=== PATIENT | female | born 1975 | race Caucasian/White ===

== ENCOUNTER 2020-01-02 14:32 | Emergency (ER) | payer BC ==
--- NOTE | 2020-01-02 14:33 | ERPHSYRPT ---
- History of Present Illness Time Seen by Provider: 01/02/20 14:33 Historian: patient Exam Limitations: no limitations Physician History: 44-year-old morbidly obese female whose had 5 days of worsening epigastric and right upper quadrant abdominal pain. On 12/16/2019 the patient had a negative ultrasound of her gallbladder. He was scheduled on 12/23/2019 to undergo a HIDA scan of the gallbladder. However she did not make that appointment. The next week it was to be scheduled she did not feel well so that has not been performed. Patient is an insulin-dependent diabetic with hypertension and gastroesophageal reflux disease. She also has elevated cholesterol. She states she has not had any jaundice or acholic stools. She denies dark urine. She does feel bloated belching and gassy. She could not tolerate the pain today and therefore she is here for evaluation. Patient denies chest pain and she denies shortness of air. States that she has nausea. She has not vomited in a couple of days. She also had some diarrhea as well Timing/Duration: day(s) (5) Quality: cramping, fullness, pressure Abdominal Pain Onset Location: RUQ, epigastric Pain Radiation: no radiation Severity of Pain-Max: moderate Severity of Pain-Current: moderate Modifying Factors: Improves With: nothing Associated Symptoms: diarrhea, loss of appetite, nausea, vomiting, No chest pain , No fever/chills, No heartburn, No shortness of breath Previous symptoms: same symptoms as today, recently seen, recently treated Allergies/Adverse Reactions: morphine Adverse Reaction (Mild, Verified 01/02/20 14:58) Vomiting Home Medications: Duloxetine HCl [Cymbalta] 60 mg PO DAILY 03/06/13 [History] Esomeprazole Magnesium [Nexium] 40 mg PO DAILY 03/06/13 [History] Gemfibrozil 600 mg [Lopid 600 mg] 600 mg PO BID 03/06/13 [History] Glimepiride 4 mg [Amaryl 4 mg] 4 mg PO DAILY 03/06/13 [History] Lisinopril 10 mg [Zestril 10 MG] 10 mg PO DAILY 03/06/13 [History] Metformin HCl 1000 mg [Glucophage 1000 MG] 1,000 mg PO BID 03/06/13 [History] Pravastatin Sodium [Pravachol] 40 mg PO DAILY 03/06/13 [History] Insulin Glargine,Hum.rec.anlog [Basaglar Kwikpen U-100] 20 unit SQ DAILY [History] Magnesium Oxide 400 mg PO DAILY 01/02/20 [History] Hx Influenza Vaccination/Date Given: No Hx Pneumococcal Vaccination/Date Given: No Travel Risk - International Travel Have you traveled outside of the country in past 3 weeks: No Have you or anyone close to you been diagnosed with or: No Do your reside in a community with a known COVID-19 case?: Yes If Yes where:: [facility] - Coronavirus Screening Has patient experienced Coronavirus symptoms: No - Review of Systems Constitutional: No Symptoms Eyes: No Symptoms Ears, Nose, & Throat: No Symptoms Respiratory: No Symptoms Cardiac: No Symptoms Abdominal/Gastrointestinal: Abdominal Pain (Epigastric and right upper quadrant) , Nausea, Vomiting, Diarrhea Genitourinary Symptoms: No Symptoms Musculoskeletal: No Symptoms Skin: No Symptoms Neurological: No Symptoms Psychological: No Symptoms Endocrine: No Symptoms Hematologic/Lymphatic: No Symptoms Immunological/Allergic: No Symptoms All Other Systems: Reviewed and Negative - Past Medical History Pertinent Past Medical History: Yes Neurological History: No Pertinent History ENT History: No Pertinent History Cardiac History: High Cholesterol Respiratory History: No Pertinent History Endocrine Medical History: Diabetes Type II Musculoskeletal History: Osteoarthritis GI Medical History: GERD History: No Pertinent History Psycho-Social History: Depression Female Reproductive Disorders: Abnormal Uterine Bleeding, Other Other Medical History: HAS SOME O.A. IN BACK AND ALSO IN KNEE. WALKS 3-6 MILES A DAY - Past Surgical History Past Surgical History: Yes Neuro Surgical History: No Pertinent History, Other Cardiac: No Pertinent History Gastrointestinal: Hernia Repair Musculoskeletal: Other Female Surgical History: Other Other Surgical History: Back surgery 12/2009 - Social History Smoking Status: Never smoker Exposure to second hand smoke: No Drug Use: none - Nursing Vital Signs Nursing Vital Signs: Initial Vital Signs Temperature 98.3 F 01/02/20 14:42 Pulse Rate 81 01/02/20 14:42 Blood Pressure 133/68 01/02/20 14:42 O2 Sat by Pulse Oximetry 98 01/02/20 14:42 Pain Scale Pain Intensity 6 - Physical Exam General Appearance: mild distress, alert, anxiety, obese Eye Exam: PERRL/EOMI, eyes nml inspection, No scleral icterus Ears, Nose, Throat Exam: normal ENT inspection, moist mucous membranes Neck Exam: normal inspection, non-tender, supple, full range of motion Respiratory Exam: normal breath sounds, lungs clear, airway intact, No chest tenderness, No respiratory distress Cardiovascular Exam: regular rate/rhythm, normal heart sounds, normal peripheral pulses Gastrointestinal/Abdomen Exam: soft, normal bowel sounds, tenderness (Gastric and right upper quadrant), guarding, No distention, No mass, No rebound Pelvic Exam: not done Rectal Exam: not done Back Exam: normal inspection, normal range of motion, No CVA tenderness, No vertebral tenderness Extremity Exam: normal inspection, normal range of motion, pelvis stable Neurologic Exam: alert, 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, cooperative, sports editor II-XII nml as tested, normal mood/affect, nml cerebellar function, nml station & gait Skin Exam: normal color, warm, dry, No jaundice Lymphatic Exam: adenopathy SpO2 Interpretation: normal O2 Delivery: Room Air - Course Nursing assessment & vital signs reviewed: Yes Ordered Tests: Active Orders 24 hr Category Date Time Status IV Insertion STAT Care 01/02/20 15:17 Active ABDOMEN AND PELVIS W/0 CONTRAS [CT] Stat Exams 01/02/20 15:18 Completed AMYLASE Stat Lab 01/02/20 15:17 Completed CBC W DIFF Stat Lab 01/02/20 15:17 Completed CMP Stat Lab 01/02/20 15:17 Completed LIPASE Stat Lab 01/02/20 15:17 Completed Lactic Acid Stat Lab 01/02/20 15:26 Completed UA W/RFX UR CULTURE Stat Lab 01/02/20 15:34 Completed Medication Summary Discontinued Medications Generic Name Dose Route Start Last Admin Trade Name Freq PRN Reason Stop Dose Admin Hydromorphone HCl 1 mg 01/02/20 15:17 01/02/20 15:27 Hydromorphone 1 Mg/Ml Ampule IV 01/02/20 15:18 1 mg STAT ONE Administration Hydromorphone HCl Confirm 01/02/20 15:25 Hydromorphone 1 Mg/Ml Ampule Administered 01/02/20 15:26 Dose 1 mg .ROUTE .STK-MED ONE Sodium Chloride 1,000 mls @ 999 mls/hr 01/02/20 15:17 01/02/20 15:26 Sodium Chloride 0.9% 1000 Ml IV 01/02/20 16:17 999 mls/hr .Q1H1M STA Administration Sodium Chloride Confirm 01/02/20 15:26 Sodium Chloride 0.9% 1000 Ml Administered 01/02/20 15:27 Dose 1,000 mls @ ud .ROUTE .STK-MED ONE Ondansetron HCl 4 mg 01/02/20 15:17 01/02/20 15:27 Zofran 4 Mg/2 Ml Vial IV 01/02/20 15:18 4 mg STAT ONE Administration Ondansetron HCl Confirm 01/02/20 15:25 Zofran 4 Mg/2 Ml Vial Administered 01/02/20 15:26 Dose 4 mg .ROUTE .STK-MED ONE Lab/Rad Data: Laboratory Result Diagrams 01/02/20 15:17 01/02/20 15:17 Laboratory Results 01/02/20 01/02/20 01/02/20 Range/Units 15:34 15:26 15:17 WBC (4.0-10.5) K/mm3 RBC (4.1-5.4) M/mm3 Hgb (12.0-16.0) gm/dl Hct (35-47) % MCV (78-100) fl MCH (26-32) pg MCHC (32-36) g/dl RDW (11.5-14.0) % Plt Count (150-450) K/mm3 MPV (7.5-11.0) fl Gran % (36.0-66.0) % Eos # (Auto) (0-0.5) Absolute Lymphs (auto) (1.0-4.6) Absolute Monos (auto) (0.0-1.3) Lymphocytes % (24.0-44.0) % Monocytes % (0.0-12.0) % Eosinophils % (0.00-5.0) % Basophils % (0.0-0.4) % Absolute Granulocytes (1.4-6.9) Basophils # (0-0.4) Sodium 139 (137-145) mmol/L Potassium 3.9 (3.5-5.1) mmol/L Chloride 106 (98-107) mmol/L Carbon Dioxide 23 (22-30) mmol/L Anion Gap 14.4 (5-15) MEQ/L BUN 11 (7-17) mg/dL Creatinine 0.42 L (0.52-1.04) mg/dL Estimated GFR > 60.0 ML/MIN Glucose 206 H (74-106) mg/dL Lactic Acid 2.3 H (0.4-2.0) Calcium 8.2 L (8.4-10.2) mg/dL Total Bilirubin 0.30 (0.2-1.3) mg/dL AST 20 (14-36) U/L ALT 25 (0-35) U/L Alkaline Phosphatase 71 (38-126) U/L Serum Total Protein 6.7 (6.3-8.2) g/dL Albumin 3.6 (3.5-5.0) g/dL Amylase 58 (30-110) U/L Lipase 218 (23-300) U/L Urine Color YELLOW (YELLOW) Urine Appearance CLEAR (CLEAR) Urine pH 6.0 (5-6) Ur Specific [place] 1.020 (1.005-1.025) Urine Protein NEGATIVE (Negative) Urine Ketones NEGATIVE (NEGATIVE) Urine Blood NEGATIVE (0-5) Suresh/ul Urine Nitrite NEGATIVE (NEGATIVE) Urine Bilirubin NEGATIVE (NEGATIVE) Urine Urobilinogen 2 (0-1) mg/dL Ur Leukocyte Esterase NEGATIVE (NEGATIVE) Urine WBC (Auto) NONE (0-5) /HPF Urine RBC (Auto) NONE (0-2) /HPF U Epithel Cells (Auto) RARE (FEW) /HPF Urine Bacteria (Auto) NONE (NEGATIVE) /HPF Urine Mucus (Auto) SLIGHT (NEGATIVE) /HPF Urine Culture Reflexed NO (NO) Urine Glucose NEGATIVE (NEGATIVE) mg/dL 01/02/20 Range/Units 15:17 WBC 5.9 (4.0-10.5) K/mm3 RBC 4.07 L (4.1-5.4) M/mm3 Hgb 12.0 (12.0-16.0) gm/dl Hct 37.0 (35-47) % MCV 90.9 (78-100) fl MCH 29.5 (26-32) pg MCHC 32.4 (32-36) g/dl RDW 12.8 (11.5-14.0) % Plt Count 207 (150-450) K/mm3 MPV 11.6 H (7.5-11.0) fl Gran % 62.8 (36.0-66.0) % Eos # (Auto) 0.23 (0-0.5) Absolute Lymphs (auto) 1.50 (1.0-4.6) Absolute Monos (auto) 0.44 (0.0-1.3) Lymphocytes % 25.6 (24.0-44.0) % Monocytes % 7.5 (0.0-12.0) % Eosinophils % 3.9 (0.00-5.0) % Basophils % 0.2 (0.0-0.4) % Absolute Granulocytes 3.68 (1.4-6.9) Basophils # 0.01 (0-0.4) Sodium (137-145) mmol/L Potassium (3.5-5.1) mmol/L Chloride (98-107) mmol/L Carbon Dioxide (22-30) mmol/L Anion Gap (5-15) MEQ/L BUN (7-17) mg/dL Creatinine (0.52-1.04) mg/dL Estimated GFR ML/MIN Glucose (74-106) mg/dL Lactic Acid (0.4-2.0) Calcium (8.4-10.2) mg/dL Total Bilirubin (0.2-1.3) mg/dL AST (14-36) U/L ALT (0-35) U/L Alkaline Phosphatase (38-126) U/L Serum Total Protein (6.3-8.2) g/dL Albumin (3.5-5.0) g/dL Amylase (30-110) U/L Lipase (23-300) U/L Urine Color (YELLOW) Urine Appearance (CLEAR) Urine pH (5-6) Ur Specific [place] (1.005-1.025) Urine Protein (Negative) Urine Ketones (NEGATIVE) Urine Blood (0-5) Suresh/ul Urine Nitrite (NEGATIVE) Urine Bilirubin (NEGATIVE) Urine Urobilinogen (0-1) mg/dL Ur Leukocyte Esterase (NEGATIVE) Urine WBC (Auto) (0-5) /HPF Urine RBC (Auto) (0-2) /HPF U Epithel Cells (Auto) (FEW) /HPF Urine Bacteria (Auto) (NEGATIVE) /HPF Urine Mucus (Auto) (NEGATIVE) /HPF Urine Culture Reflexed (NO) Urine Glucose (NEGATIVE) mg/dL - Progress Progress: improved, pain not gone completely, re-examined Progress Note: 01/02/20 16:52 CAT scan of the abdomen and pelvis reveals a distended gallbladder without gallstones. There is a 3 cm left ovarian cyst. These findings were discussed with the patient. Patient is need of following up with her primary care physician. Counseled pt/family regarding: lab results, diagnosis, need for follow-up, rad results - Departure Departure Disposition: Home Clinical Impression: Epigastric abdominal pain Condition: Stable Critical Care Time: No Referrals: DASH PUENTES [Primary Care Provider] - Additional Instructions: Drink plenty of fluids. Avoid fatty greasy spicy foods. Follow-up with your primary care physician for further evaluation including HIDA scan. Follow-up with general surgeon for further management Prescriptions: Ondansetron ODT 4 MG [Zofran Odt 4 mg] 4 mg PO Q6H PRN PRN #10 tab.rapdis PRN Reason: Vomiting Hydrocodone/APAP 5-325 Tab^^^ [[place] 5-325 Tablet^^^] 1 tab PO Q8H PRN PRN #9 tablet MDD 3 PRN Reason: Pain
[2020-01-02] MEDS ORDERED: Hydromorphone 1 mg/ml Ampule IV ONE (15:17)
[2020-01-02] MEDS ORDERED: Sodium Chloride 0.9% 1000 ML 1,000 ML IV STA (15:17)
[2020-01-02] MEDS ORDERED: Zofran 4 MG/2 ML VIAL IV ONE (15:17)
[2020-01-02] MEDS ORDERED: Hydromorphone 1 mg/ml Ampule ONE (15:25)
[2020-01-02] MEDS ORDERED: Zofran 4 MG/2 ML VIAL ONE (15:25)
[2020-01-02] MEDS ORDERED: Sodium Chloride 0.9% 1000 ML 1,000 ML ONE (15:26)
[2020-01-02 15:40] LABS: Absolute Neutrophil Ct (ANC) 3.68 (1.4-6.9); BASOPHIL % 0.2 % (0.0-0.4); Basophil (Absolute #) 0.01 (0-0.4); Eosinophil % 3.9 % (0.00-5.0); Eosinophil (Absolute #) 0.23 (0-0.5); Lymphocytes % 25.6 % (24.0-44.0); Mean Cell Volume 90.9 fl (78-100); Mean Corpuscular Hemoglobin 29.5 pg (26-32); Mean Corpuscular Hgb Concent. 32.4 g/dl (32-36); Mean Platelet Volume 11.6 fl (7.5-11.0); Monocyte (Absolute #) 0.44 (0.0-1.3); Monocytes % 7.5 % (0.0-12.0); Neutrophil % 62.8 % (36.0-66.0); Platelet Count 207 K/mm3 (150-450); Red Blood Count 4.07 M/mm3 (4.1-5.4); Red Cell Distribution Width 12.8 % (11.5-14.0); White Blood Count 5.9 K/mm3 (4.0-10.5)
[2020-01-02 15:46] LABS: ALBUMIN 3.6 g/dL (3.5-5.0); ALKALINE PHOSPHATASE 71 U/L (38-126); AMYLASE 58 U/L (30-110); ANION GAP 14.4 MEQ/L (5-15); BLOOD UREA NITROGEN 11 mg/dL (7-17); CHLORIDE 106 mmol/L (98-107); Calcium 8.2 mg/dL (8.4-10.2); Carbon Dioxide 23 mmol/L (22-30); Creatinine 1 0.42 mg/dL (0.52-1.04); Glucose 206 mg/dL (74-106); LIPASE 218 U/L (23-300); Potassium 3.9 mmol/L (3.5-5.1); SGOT/AST 20 U/L (14-36); SGPT/ALT 25 U/L (0-35); SODIUM 139 mmol/L (137-145); Total Protein 6.7 g/dL (6.3-8.2)
[2020-01-02 16:06] VITALS: BP 130/79
[2020-01-02 16:12] LABS: Appearance CLEAR (CLEAR); Bilirubin NEGATIVE (NEGATIVE); Blood NEGATIVE Ery/ul (0-5); Epithelial Cells RARE /HPF (FEW); Glucose NEGATIVE (NEGATIVE); Ketones NEGATIVE (NEGATIVE); Leukocyte Esterase NEGATIVE (NEGATIVE); Mucus SLIGHT /HPF (NEGATIVE); Nitrite NEGATIVE (NEGATIVE); Protein,Urine Dip NEGATIVE (Negative); Urobilinogen 2 mg/dL (0-1)
--- NOTE | 2020-01-02 16:34 | XRAY ---
Indication: Vomiting and diarrhea. Multiple contiguous axial images obtained through the abdomen and pelvis without contrast as ordered. Comparison: None Lung bases demonstrates minimal bilateral dependent atelectasis without infiltrate or effusion. Heart is not enlarged. Noncontrasted stomach and bowel loops appear nonobstructed. Previous appendectomy. Mild diffuse scattered colonic fecal debris and colonic diverticulosis throughout. 3.3 cm left ovary cyst. No free fluid/air. Mild diffuse fatty hepatomegaly measuring 23.2 cm and 14.5 cm splenomegaly. Gallbladder moderately distended without gallstones. 7 mm nonobstructing left renal calculus. Remaining pancreas, adrenal glands, kidneys, ureters, bladder, uterus, and aorta appear unremarkable for noncontrast exam. Osseous structures intact with moderate lumbosacral junction degenerative changes. No ventral or inguinal hernias. Impression: 1. Distended gallbladder without gallstones. Gallbladder sonogram may yield further information if clinically warranted. 2. Mild fecal stasis without obstruction and colonic diverticulosis without diverticulitis. 3. 3 cm left ovary cyst. Pelvic sonogram may yield further information if clinically warranted. 4. Nonobstructing left renal calculus. 5. Fatty hepatomegaly and splenomegaly.
[2020-01-02 17:04] VITALS: PULSE 84; O2SAT 98
== END 2020-01-02 17:16 | disposition home or self-care (01) ==
LOC: ED 14:32
DX: R10.13 Epigastric pain (principal); E11.9 Type 2 diabetes mellitus without complications; Z79.4 Long term (current) use of insulin; Z79.899 Other long term (current) drug therapy; E78.00 Pure hypercholesterolemia, unspecified; K21.9 Gastro-esophageal reflux disease without esophagitis
CPT/HCPCS: 36415; 74176; 80053; 81001; 82150; 83605; 83690; 85025; 96360; 96374; 96375; 99284; J1170; J2405

== ENCOUNTER 2020-01-27 11:11 | Emergency (ER) | payer BC ==
[2020-01-27 11:24] VITALS: O2SAT 98
--- NOTE | 2020-01-27 11:27 | ERPHSYRPT ---
- History of Present Illness Time Seen by Provider: 01/27/20 11:22 Source: patient Exam Limitations: no limitations Physician History: This is a 44-year-old female who 2 days ago was painting and slipped and fell backwards hitting her head. Patient denies any loss of consciousness at the time. However she has had a headache, she has been dizzy, and she has had a constant low level of nausea. Patient has had no visual changes. Patient contacted her primary care physician who sent her to the emergency department for evaluation including a CAT scan of her head. Patient denies any neck pain. Patient denies any other areas of pain. Occurred: days ago (2) Severity: mild Head Injury Location: global Method of Injury: fell Loss of Consciousness: no loss of consciousness Associated Symptoms: nausea, headaches, other (Dizziness) Allergies/Adverse Reactions: morphine Adverse Reaction (Mild, Verified 01/02/20 14:58) Vomiting Home Medications: Duloxetine HCl [Cymbalta] 60 mg PO DAILY 03/06/13 [History] Esomeprazole Magnesium [Nexium] 40 mg PO DAILY 03/06/13 [History] Gemfibrozil 600 mg [Lopid 600 mg] 600 mg PO BID 03/06/13 [History] Glimepiride 4 mg [Amaryl 4 mg] 4 mg PO DAILY 03/06/13 [History] Lisinopril 10 mg [Zestril 10 MG] 10 mg PO DAILY 03/06/13 [History] Metformin HCl 1000 mg [Glucophage 1000 MG] 1,000 mg PO BID 03/06/13 [History] Pravastatin Sodium [Pravachol] 40 mg PO DAILY 03/06/13 [History] Insulin Glargine,Hum.rec.anlog [Basaglar Kwikpen U-100] 20 unit SQ DAILY 01/02/20 [History] Magnesium Oxide 400 mg PO DAILY 01/02/20 [History] Hx Influenza Vaccination/Date Given: No Hx Pneumococcal Vaccination/Date Given: No Travel Risk - International Travel Have you traveled outside of the country in past 3 weeks: No - Coronavirus Screening Are you exhibiting any of the following symptoms?: No Close contact with a COVID-19 positive Pt in past 14-21 Days: No - Review of Systems Constitutional: No Symptoms Eyes: No Symptoms Ears, Nose, & Throat: No Symptoms Respiratory: No Symptoms Cardiac: No Symptoms Abdominal/Gastrointestinal: No Abdominal Pain, No Vomiting, No Diarrhea Genitourinary Symptoms: No Symptoms Musculoskeletal: No Symptoms Skin: No Symptoms Neurological: Dizziness, Headache Psychological: No Symptoms Endocrine: No Symptoms Hematologic/Lymphatic: No Symptoms Immunological/Allergic: No Symptoms All Other Systems: Reviewed and Negative - Past Medical History Pertinent Past Medical History: Yes Neurological History: No Pertinent History ENT History: No Pertinent History Cardiac History: High Cholesterol Respiratory History: No Pertinent History Endocrine Medical History: Diabetes Type II Musculoskeletal History: Osteoarthritis GI Medical History: GERD History: No Pertinent History Psycho-Social History: Depression Female Reproductive Disorders: Abnormal Uterine Bleeding, Other Other Medical History: HAS SOME O.A. IN BACK AND ALSO IN KNEE. WALKS 3-6 MILES A DAY - Past Surgical History Past Surgical History: Yes Neuro Surgical History: No Pertinent History, Other Cardiac: No Pertinent History Gastrointestinal: Hernia Repair Musculoskeletal: Other Female Surgical History: Other Other Surgical History: Back surgery 12/2009 - Social History Smoking Status: Never smoker Exposure to second hand smoke: No Drug Use: none Patient Lives Alone: No - Nursing Vital Signs Nursing Vital Signs: Initial Vital Signs Temperature 98.7 F 01/27/20 11:17 Pulse Rate 82 01/27/20 11:17 Respiratory Rate 20 01/27/20 11:17 Blood Pressure 118/84 01/27/20 11:17 O2 Sat by Pulse Oximetry 98 01/27/20 11:17 Pain Scale Pain Intensity 5 - Samantha Coma Score Best Eye Response ([place]): (4) open spontaneously Best Verbal Response ([place]): (5) oriented Best Motor Response ([place]): (6) obeys commands [place] Total: 15 - Physical Exam General Appearance: no apparent distress, alert, anxiety Head Injury: no evidence of injury Eye Exam: bilateral eye: normal inspection, PERRL, EOMI ENT Exam: airway nml, nml ext.inspection, No evidence of ENT injury Neck Exam: supple, trachea midline, full range of motion, normal alignment, norm al inspection Cardiovascular/Respiratory Exam: chest non-tender Gastrointestinal/Abdominal Exam: non tender Pelvic Exam: not done Rectal Exam: not done Back Exam: normal inspection, normal range of motion, No CVA tenderness, No vertebral tenderness Extremity Exam: non-tender, normal range of motion, normal inspection Mental Status Exam: alert, 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, 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 Exam: normal hearing, normal speech, PERRL Coordination/Gait Exam: normal finger to nose, normal gait, normal cerebellar function Motor/Sensory Exam: no motor deficit, no sensory deficit, no pronator drift Skin Exam: normal color, warm, dry Lymphatic Exam: No adenopathy SpO2 Interpretation: normal O2 Delivery: Room Air - Course Nursing assessment & vital signs reviewed: Yes Ordered Tests: Active Orders 24 hr Category Date Time Status HEAD WITHOUT CONTRAST [CT] Stat Exams 01/27/20 11:22 Completed - Progress Progress: unchanged Progress Note: 01/27/20 12:17 CAT scan of the head shows right maxillary sinusitis. No other acute intracranial abnormality present. Counseled pt/family regarding: need for follow-up, rad results - Departure Departure Disposition: Home Clinical Impression: Head injury, Sinusitis Condition: Stable Critical Care Time: No Referrals: DASH PUENTES [Primary Care Provider] - Additional Instructions: Take medication as prescribed. Follow-up with your primary care physician for further management. Prescriptions: Prednisone 10 mg [Deltasone 10 mg] 10 mg PO TID #12 tablet Azithromycin 250 mg [Zithromax 250 MG TABLET] 250 mg PO ZPACK #6 tablet
--- NOTE | 2020-01-27 12:06 | XRAY ---
Indication: Head injury following fall. Multiple contiguous axial images obtained through the head without contrast. Comparison: None Normal appearing brain parenchyma, ventricles, and bony calvarium. Complete opacification right maxillary sinus without expansion or osseous destructive process. Remaining paranasal sinuses and mastoid air cells are clear. Impression: Right maxillary sinus disease with complete opacification. Remaining CT head without contrast exam is normal.
[2020-01-27 12:16] VITALS: BP 124/76; PULSE 80
== END 2020-01-27 12:50 | disposition home or self-care (01) ==
LOC: ED 11:11
DX: S09.90XA Unspecified injury of head, initial encounter (principal); W01.10XA Fall on same level from slipping, tripping and stumbling with subsequent striking against unspecified object, initial encounter; Y93.89 Activity, other specified; Y92.89 Other specified places as the place of occurrence of the external cause; R42 Dizziness and giddiness; Z79.899 Other long term (current) drug therapy; J32.0 Chronic maxillary sinusitis
CPT/HCPCS: 70450; 99283

== ENCOUNTER 2021-01-20 07:01 | Day surgery (SDC) | payer BC ==
[2021-01-20] MEDS ORDERED: Depo-Medrol 40 MG/ML IM ONE (07:02)
[2021-01-20] MEDS ORDERED: BUPIVACAINE 0.5% VIAL IJ ONE (07:02)
[2021-01-20] MEDS ORDERED: DIPRIVAN 200 MG/20 ML IV ONE (08:41)
--- NOTE | 2021-01-20 10:46 | XRAY ---
Indication: Right SI joint injection. Intraoperative fluoroscopy provided for 8 seconds. 2 digital spot images submitted for interpretation demonstrates posterior needle tip projecting over the inferior right SI joint. Correlate with intraoperative findings/report.
--- NOTE | 2021-01-20 11:55 | XRAY ---
8 seconds of fluoroscopy was used in surgery for a right SI joint injection.
[2021-01-20] MEDS ORDERED: Lactated Ringers 1,000 ML IV ONE (15:59)
== END 2021-01-20 09:06 | disposition home or self-care (01) ==
LOC: SDC-PAIN 07:01
PROVIDERS: ATTEND Psychiatry & Neurology Pain Medicine
DX: M46.1 Sacroiliitis, not elsewhere classified (principal); E11.9 Type 2 diabetes mellitus without complications; K21.9 Gastro-esophageal reflux disease without esophagitis; F41.9 Anxiety disorder, unspecified; F32.9 Major depressive disorder, single episode, unspecified; Z79.899 Other long term (current) drug therapy
CPT/HCPCS: 27096; 72020; 77002; 82947; 84703; J1030; J2704; G0260

== ENCOUNTER 2021-04-19 10:12 | Emergency (ER) | payer BC ==
[2021-04-19] MEDS ORDERED: Sodium Chloride 0.9% 1000 ML 1,000 ML IV STA (11:13)
[2021-04-19] MEDS ORDERED: TORAdol 30 mg Injection IV ONE (11:16)
[2021-04-19] MEDS ORDERED: TORAdol 30 mg Injection ONE (11:47)
[2021-04-19] MEDS ORDERED: Sodium Chloride 0.9% 1000 ML 1,000 ML ONE (11:48)
[2021-04-19 11:49] LABS: BASOPHIL % 0.9 % (0.0-0.4); Basophil (Absolute #) 0.05 (0-0.4); Eosinophil % 3.1 % (0.00-5.0); Eosinophil (Absolute #) 0.17 (0-0.5); Hematocrit 39.7 % (35-47); Hemoglobin 12.6 gm/dl (12.0-16.0); Lymphocyte (Absolute #) 1.64 (1.0-4.6); Lymphocytes % 29.4 % (24.0-44.0); Mean Cell Volume 88.4 fl (78-100); Mean Corpuscular Hemoglobin 28.1 pg (26-32); Mean Corpuscular Hgb Concent. 31.7 g/dl (32-36); Mean Platelet Volume 11.4 fl (7.5-11.0); Monocyte (Absolute #) 0.41 (0.0-1.3); Monocytes % 7.4 % (0.0-12.0); Neutrophil % 59.2 % (36.0-66.0); Platelet Count 218 K/mm3 (150-450); Red Blood Count 4.49 M/mm3 (4.1-5.4); Red Cell Distribution Width 13.9 % (11.5-14.0); White Blood Count 5.6 K/mm3 (4.0-10.5)
[2021-04-19 12:04] LABS: ALBUMIN 4.2 g/dL (3.5-5.0); ALKALINE PHOSPHATASE 61 U/L (38-126); AMYLASE 75 U/L (30-110); ANION GAP 15.8 MEQ/L (5-15); BLOOD UREA NITROGEN 12 mg/dL (7-17); CHLORIDE 98 mmol/L (98-107); Calcium 9.1 mg/dL (8.4-10.2); Carbon Dioxide 25 mmol/L (22-30); Creatinine 1 0.42 mg/dL (0.52-1.04); EST GLOMERULAR FILTRATION RATE > 60.0 ML/MIN; Glucose 279 mg/dL (74-106); LIPASE 181 U/L (23-300); Potassium 4.2 mmol/L (3.5-5.1); SGOT/AST 26 U/L (14-36); SGPT/ALT 23 U/L (0-35); SODIUM 135 mmol/L (137-145); Total Protein 7.2 g/dL (6.3-8.2)
--- NOTE | 2021-04-19 12:16 | ERPHSYRPT ---
- History of Present Illness Historian: patient Exam Limitations: no limitations Patient Subjective Stated Complaint: abdominal pain for the past 1.5 weeks Triage Nursing Assessment: Pt states that she has been having lower left quadrant pain and left back pain for approx 1.5 weeks, pt has been taking miralax daily for approx 1.5 weeks due to developing constipation, last bm this morning and states that it was normal, pt usually goes 3-4 times daily and she has not been, pt also has a hx of kidney stones, today pt is hypertensive and rates her pain as a 6/10, hypoactive bowel sounds, doesn't appear to be in any distress Physician History: 45 yo wf w L sided abdominal pain x2wks. Pt saw [facility] on 04/05 and diagnosed w constipation. Pain 10 but has been up to 04/16. She has mild nausea but denies V/D/melena/hematochezia/dysuria/hematuria/fever/cough. Pt states pain similar to kidney stone in past. Nothing makes the pain better or worse, and it radiates to her back. Timing/Duration: other (2wks) Activities at Onset: rest Quality: dullness Abdominal Pain Onset Location: other (L abdomen) Pain Radiation: shoulder, back Severity of Pain-Current: moderate Modifying Factors: Improves With: nothing Associated Symptoms: denies symptoms, back, nausea, No chest pain, No diaphoresis, No diarrhea, No fever/chills, No fatigue, No headache, No heartburn, No loss of appetite, No neck pain, No rash, No shortness of breath, No syncope, No vomiting, No weakness Previous symptoms: same symptoms as today Allergies/Adverse Reactions: morphine Adverse Reaction (Mild, Verified 04/19/21 10:52) Vomiting Home Medications: Esomeprazole Magnesium [Nexium] 40 mg PO DAILY 03/06/13 [History] Gemfibrozil 600 mg [Lopid 600 mg] 600 mg PO BID 03/06/13 [History] Glimepiride 4 mg [Amaryl 4 mg] 4 mg PO DAILY 03/06/13 [History] Lisinopril 10 mg [Zestril 10 MG] 10 mg PO DAILY 03/06/13 [History] Metformin HCl 1000 mg [Glucophage 1000 MG] 1,000 mg PO BID 03/06/13 [History] Pravastatin Sodium [Pravachol] 40 mg PO DAILY 03/06/13 [History] Insulin Glargine,Hum.rec.anlog [Basaglar Kwikpen U-100] 20 unit SQ DAILY 01/02/20 [History] Fluoxetine HCl [Prozac] 40 mg PO DAILY 04/19/21 [History] Hydrocodone/Acetaminophen [Hydrocodone-Acetamin 10-325 mg] 1 tablet PO DAILY 04/19/21 [History] Hx Tetanus, Diphtheria Vaccination/Date Given: No Hx Influenza Vaccination/Date Given: No Hx Pneumococcal Vaccination/Date Given: No Travel Risk - International Travel Have you traveled outside of the country in past 3 weeks: No - Coronavirus Screening Are you exhibiting any of the following symptoms?: No Close contact with a COVID-19 positive Pt in past 14-21 Days: No - Vaccine Status Have you recieved a Covid-19 vaccination: No - Review of Systems Constitutional: No Symptoms Eyes: No Symptoms Ears, Nose, & Throat: No Symptoms Respiratory: No Symptoms Cardiac: No Symptoms Genitourinary Symptoms: No Symptoms Musculoskeletal: No Symptoms Skin: No Symptoms Neurological: No Symptoms Psychological: No Symptoms Endocrine: No Symptoms Hematologic/Lymphatic: No Symptoms Immunological/Allergic: No Symptoms - Past Medical History Pertinent Past Medical History: Yes Neurological History: No Pertinent History ENT History: No Pertinent History Cardiac History: High Cholesterol Respiratory History: Asthma Endocrine Medical History: Diabetes Type II Musculoskeletal History: Arthritis GI Medical History: GERD History: No Pertinent History Psycho-Social History: Depression Female Reproductive Disorders: Abnormal Uterine Bleeding, Other Other Medical History: HAS SOME O.A. IN BACK AND ALSO IN KNEE. WALKS 3-6 MILES A DAY - Past Surgical History Past Surgical History: Yes Neuro Surgical History: No Pertinent History, Other Cardiac: No Pertinent History Gastrointestinal: Hernia Repair Musculoskeletal: Other Female Surgical History: Other Other Surgical History: Back surgery 12/2009 - Social History Smoking Status: Never smoker Exposure to second hand smoke: No Drug Use: none Patient Lives Alone: No Significant Family History: no pertinent family hx - Female History Hx Now: No - Nursing Vital Signs Nursing Vital Signs: Initial Vital Signs Temperature 98.5 F 04/19/21 10:38 Pulse Rate 78 04/19/21 10:38 Blood Pressure 156/87 04/19/21 10:38 O2 Sat by Pulse Oximetry 97 04/19/21 10:38 Pain Scale Pain Intensity 6 Hypertensive - Physical Exam General Appearance: no apparent distress Eye Exam: PERRL/EOMI, eyes nml inspection Ears, Nose, Throat Exam: normal ENT inspection, TMs normal, pharynx normal, moist mucous membranes Neck Exam: normal inspection, non-tender, supple, full range of motion, No meningismus, No mass, No Brudzinski, No Kernig's Respiratory Exam: normal breath sounds, lungs clear, airway intact Cardiovascular Exam: regular rate/rhythm, normal heart sounds, normal peripheral pulses, No murmur Gastrointestinal/Abdomen Exam: soft, normal bowel sounds, tenderness (Mild L abdomen ttp wo guarding or rebound/Good BS) Back Exam: normal inspection, normal range of motion, No CVA tenderness Extremity Exam: normal inspection, normal range of motion Neurologic Exam: alert, 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, cooperative, offset press 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 II-XII nml as tested, normal mood/affect, nml station & gait, sensation nml Skin Exam: normal color, warm, dry Lymphatic Exam: No adenopathy SpO2 Interpretation: normal SpO2: 96 O2 Delivery: Room Air - Course Nursing assessment & vital signs reviewed: Yes - CT Exams Abdomen/Pelvis CT Interpretation: Discussed w/radiologist (5mm L UPJ stone) Ordered Tests: Active Orders 24 hr Category Date Time Status IV Insertion STAT Care 04/19/21 11:13 Completed ABDOMEN AND PELVIS W/0 CONTRAS [CT] Stat Exams 04/19/21 12:06 Completed AMYLASE Stat Lab 04/19/21 11:40 Completed CBC W DIFF Stat Lab 04/19/21 11:40 Completed CMP Stat Lab 04/19/21 11:40 Completed CULTURE,URINE Stat Lab 04/19/21 13:37 Received HCG QUALITATIVE,SERUM Stat Lab 04/19/21 11:40 Completed LIPASE Stat Lab 04/19/21 11:40 Completed TROPONIN Q3H Lab 04/19/21 14:13 Completed UA W/RFX UR CULTURE Stat Lab 04/19/21 13:37 Completed Medication Summary Discontinued Medications Generic Name Dose Route Start Last Admin Trade Name Freq PRN Reason Stop Dose Admin Hydromorphone HCl 1 mg 04/19/21 14:18 04/19/21 14:43 Hydromorphone 1 Mg/Ml Injection IV 04/19/21 14:19 1 mg STAT ONE Administration Hydromorphone HCl Confirm 04/19/21 14:41 Hydromorphone 1 Mg/Ml Injection Administered 04/19/21 14:42 Dose 1 mg .ROUTE .STK-MED ONE Sodium Chloride 1,000 mls @ 999 mls/hr 04/19/21 11:13 04/19/21 13:14 Sodium Chloride 0.9% 1000 Ml IV 04/19/21 12:13 Infused .Q1H1M STA Infusion Sodium Chloride Confirm 04/19/21 11:48 Sodium Chloride 0.9% 1000 Ml Administered 04/19/21 11:49 Dose 1,000 mls @ ud .ROUTE .STK-MED ONE Ketorolac Tromethamine 30 mg 04/19/21 11:16 04/19/21 11:49 Toradol 30 Mg Injection IV 04/19/21 11:17 30 mg STAT ONE Administration Ketorolac Tromethamine Confirm 04/19/21 11:47 Toradol 30 Mg Injection Administered 04/19/21 11:48 Dose 30 mg .ROUTE .STK-MED ONE Ondansetron HCl 4 mg 04/19/21 14:19 04/19/21 14:43 Zofran 4 Mg/2 Ml Vial IV 04/19/21 14:20 4 mg STAT ONE Administration Ondansetron HCl Confirm 04/19/21 14:41 Zofran 4 Mg/2 Ml Vial Administered 04/19/21 14:42 Dose 4 mg .ROUTE .STK-MED ONE Lab/Rad Data: Laboratory Result Diagrams 04/19/21 11:40 04/19/21 11:40 Laboratory Results 04/19/21 04/19/21 04/19/21 Range/Units 14:13 13:37 11:40 WBC (4.0-10.5) K/mm3 RBC (4.1-5.4) M/mm3 Hgb (12.0-16.0) gm/dl Hct (35-47) % MCV (78-100) fl MCH (26-32) pg MCHC (32-36) g/dl RDW (11.5-14.0) % Plt Count (150-450) K/mm3 MPV (7.5-11.0) fl Gran % (36.0-66.0) % Eos # (Auto) (0-0.5) Absolute Lymphs (auto) (1.0-4.6) Absolute Monos (auto) (0.0-1.3) Lymphocytes % (24.0-44.0) % Monocytes % (0.0-12.0) % Eosinophils % (0.00-5.0) % Basophils % (0.0-0.4) % Absolute Granulocytes (1.4-6.9) Basophils # (0-0.4) Sodium (137-145) mmol/L Potassium (3.5-5.1) mmol/L Chloride (98-107) mmol/L Carbon Dioxide (22-30) mmol/L Anion Gap (5-15) MEQ/L BUN (7-17) mg/dL Creatinine (0.52-1.04) mg/dL Estimated GFR ML/MIN Glucose (74-106) mg/dL Calcium (8.4-10.2) mg/dL Total Bilirubin (0.2-1.3) mg/dL AST (14-36) U/L ALT (0-35) U/L Alkaline Phosphatase (38-126) U/L Troponin I < 0.012 (0.000-0.034) ng/mL Serum Total Protein (6.3-8.2) g/dL Albumin (3.5-5.0) g/dL Amylase (30-110) U/L Lipase (23-300) U/L Serum , Qual NEGATIVE (Negative) Urine Color YELLOW (YELLOW) Urine Appearance CLEAR (CLEAR) Urine pH 6.0 (5-6) Ur Specific [place] 1.018 (1.005-1.025) Urine Protein NEGATIVE (Negative) Urine Ketones NEGATIVE (NEGATIVE) Urine Blood SMALL (0-5) Suresh/ul Urine Nitrite NEGATIVE (NEGATIVE) Urine Bilirubin NEGATIVE (NEGATIVE) Urine Urobilinogen NEGATIVE (0-1) mg/dL Ur Leukocyte Esterase NEGATIVE (NEGATIVE) Urine WBC (Auto) 0-2 (0-5) /HPF Urine RBC (Auto) 26-50 (0-2) /HPF U Epithel Cells (Auto) NONE (FEW) /HPF Urine Bacteria (Auto) RARE (NEGATIVE) /HPF Urine Mucus (Auto) SLIGHT (NEGATIVE) /HPF Urine Culture Reflexed YES (NO) Urine Glucose >=500 (NEGATIVE) mg/dL 04/19/21 04/19/21 Range/Units 11:40 11:40 WBC 5.6 (4.0-10.5) K/mm3 RBC 4.49 (4.1-5.4) M/mm3 Hgb 12.6 (12.0-16.0) gm/dl Hct 39.7 (35-47) % MCV 88.4 (78-100) fl MCH 28.1 (26-32) pg MCHC 31.7 L (32-36) g/dl RDW 13.9 (11.5-14.0) % Plt Count 218 (150-450) K/mm3 MPV 11.4 H (7.5-11.0) fl Gran % 59.2 (36.0-66.0) % Eos # (Auto) 0.17 (0-0.5) Absolute Lymphs (auto) 1.64 (1.0-4.6) Absolute Monos (auto) 0.41 (0.0-1.3) Lymphocytes % 29.4 (24.0-44.0) % Monocytes % 7.4 (0.0-12.0) % Eosinophils % 3.1 (0.00-5.0) % Basophils % 0.9 (0.0-0.4) % Absolute Granulocytes 3.30 (1.4-6.9) Basophils # 0.05 (0-0.4) Sodium 135 L (137-145) mmol/L Potassium 4.2 (3.5-5.1) mmol/L Chloride 98 (98-107) mmol/L Carbon Dioxide 25 (22-30) mmol/L Anion Gap 15.8 H (5-15) MEQ/L BUN 12 (7-17) mg/dL Creatinine 0.42 L (0.52-1.04) mg/dL Estimated GFR > 60.0 ML/MIN Glucose 279 H (74-106) mg/dL Calcium 9.1 (8.4-10.2) mg/dL Total Bilirubin 0.40 (0.2-1.3) mg/dL AST 26 (14-36) U/L ALT 23 (0-35) U/L Alkaline Phosphatase 61 (38-126) U/L Troponin I (0.000-0.034) ng/mL Serum Total Protein 7.2 (6.3-8.2) g/dL Albumin 4.2 (3.5-5.0) g/dL Amylase 75 (30-110) U/L Lipase 181 (23-300) U/L Serum , Qual (Negative) Urine Color (YELLOW) Urine Appearance (CLEAR) Urine pH (5-6) Ur Specific [place] (1.005-1.025) Urine Protein (Negative) Urine Ketones (NEGATIVE) Urine Blood (0-5) Suresh/ul Urine Nitrite (NEGATIVE) Urine Bilirubin (NEGATIVE) Urine Urobilinogen (0-1) mg/dL Ur Leukocyte Esterase (NEGATIVE) Urine WBC (Auto) (0-5) /HPF Urine RBC (Auto) (0-2) /HPF U Epithel Cells (Auto) (FEW) /HPF Urine Bacteria (Auto) (NEGATIVE) /HPF Urine Mucus (Auto) (NEGATIVE) /HPF Urine Culture Reflexed (NO) Urine Glucose (NEGATIVE) mg/dL - Progress Progress: improved Progress Note: 04/19/21 14:21 Pain much improved w 30mg IV Toradol/1L NS bolus 04/19/21 14:22 Pt has [place] at home 1mg IV Dilaudid/4mg IV Zofran Pt to f/u w Urologist of her choice Counseled pt/family regarding: lab results, diagnosis, need for follow-up, rad results - Departure Departure Disposition: Home Clinical Impression: Ureterolithiasis Condition: Stable Critical Care Time: No Referrals: DASH PUENTES NP [Primary Care Provider] - Instructions: Renal Colic (DC) Additional Instructions: Strain all urine Pain meds as needed Follow up with a urologist Return to ER for increasing pain or temperature greater than 100.5
--- NOTE | 2021-04-19 12:46 | XRAY ---
Indication: Left abdomen pain. Multiple contiguous axial images obtained through the abdomen and pelvis without contrast. Comparison: January 02, 2020. Lung bases again demonstrates minimal bilateral dependent atelectasis. No infiltrate or effusion. Heart not enlarged. Noncontrasted stomach and bowel loops nonobstructed again with appendectomy. There is again mild diffuse scattered colonic fecal debris throughout. New 5 mm left UPJ calculus with mild hydronephrosis. Left kidney demonstrates 2 additional calculi, largest measuring 8-9 mm. 2 cm dominant left ovary cyst. Again fatty hepatomegaly measuring 23 cm and splenomegaly measuring 15.4 cm. No free fluid/air. Remaining liver, gallbladder, pancreas, spleen, adrenal glands, right kidney, right ureter, bladder, uterus, and aorta are unremarkable for noncontrast exam. Osseous structures intact again with moderate lumbosacral junction degenerative changes. Impression: 1. New 5 mm left UPJ calculus producing partial obstruction. 2 additional left renal micro-calculi. 2. Again mild diffuse fecal stasis, fatty hepatomegaly, and splenomegaly.
[2021-04-19 14:09] LABS: Appearance CLEAR (CLEAR); Bilirubin NEGATIVE (NEGATIVE); Blood SMALL Ery/ul (0-5); Glucose >=500 mg/dL (NEGATIVE); Ketones NEGATIVE (NEGATIVE); Leukocyte Esterase NEGATIVE (NEGATIVE); Mucus SLIGHT /HPF (NEGATIVE); Nitrite NEGATIVE (NEGATIVE); Protein,Urine Dip NEGATIVE (Negative); RBC 26-50 /HPF (0-2); Specific Gravity 1.018 (1.005-1.025); Urobilinogen NEGATIVE mg/dL (0-1); WBC 0-2 /HPF (0-5)
[2021-04-19 14:14] LABS: Bacteria RARE /HPF (NEGATIVE)
[2021-04-19] MEDS ORDERED: Hydromorphone 1 mg/ml Injection IV ONE (14:18)
[2021-04-19] MEDS ORDERED: Zofran 4 MG/2 ML VIAL IV ONE (14:19)
[2021-04-19] MEDS ORDERED: Hydromorphone 1 mg/ml Injection ONE (14:41)
[2021-04-19] MEDS ORDERED: Zofran 4 MG/2 ML VIAL ONE (14:41)
[2021-04-19 15:25] VITALS: BP 145/67; PULSE 80
[2021-04-19 20:26] VITALS: O2SAT 96
== END 2021-04-19 15:25 | disposition home or self-care (01) ==
LOC: ED 10:12
DX: N20.1 Calculus of ureter (principal); R10.32 Left lower quadrant pain; M54.9 Dorsalgia, unspecified; K59.00 Constipation, unspecified; Z79.899 Other long term (current) drug therapy; Z79.891 Long term (current) use of opiate analgesic; E78.00 Pure hypercholesterolemia, unspecified; E11.9 Type 2 diabetes mellitus without complications
CPT/HCPCS: 36000; 36415; 74176; 80053; 81001; 81025; 82150; 83690; 84484; 85025; 87086; 96360; 96374; 96375; 99284; J1170; J1885; J2405

== ENCOUNTER 2021-07-21 13:21 | Emergency (ER) | payer BC ==
[2021-07-21] MEDS ORDERED: TORAdol 30 mg Injection IM ONE (13:41)
[2021-07-21] MEDS ORDERED: TORAdol 30 mg Injection ONE (13:43)
[2021-07-21 13:59] LABS: Appearance CLEAR (CLEAR); Bacteria FEW /HPF (NEGATIVE); Bilirubin NEGATIVE (NEGATIVE); Blood NEGATIVE Ery/ul (0-5); Epithelial Cells RARE /HPF (FEW); Glucose NEGATIVE (NEGATIVE); Ketones NEGATIVE (NEGATIVE); Leukocyte Esterase NEGATIVE (NEGATIVE); Mucus SLIGHT /HPF (NEGATIVE); Nitrite POSITIVE (NEGATIVE); Protein,Urine Dip 30 (Negative); Urobilinogen 4 mg/dL (0-1)
--- NOTE | 2021-07-21 14:15 | XRAY ---
Indication: Left flank pain. History of stones. Multiple contiguous axial images obtained through the abdomen and pelvis without contrast. Comparison: April 19, 2021. Lung bases are clear. Heart not enlarged. Posterior urinary bladder demonstrates new 8 mm calculus adjacent to the left UVJ. No hydronephrosis or hydroureter. Enlarging nonobstructing 12 mm left renal calculus. No renal calculus or evidence for obstructive uropathy on the right. Noncontrasted stomach and bowel loops nonobstructed again with appendectomy. Again mild diffuse scattered colonic fecal debris throughout. No free fluid/air. Again 23.6 cm fatty hepatomegaly and 14.5 cm splenomegaly. Remaining liver, gallbladder, pancreas, spleen, adrenal glands, kidneys, ureters, bladder, and uterus are unremarkable for noncontrast exam. Again minimal aortoiliac calcifications without AAA. Osseous structures intact again with minimal/mild degenerative changes throughout the spine. Impression: 1. New 8 mm urinary bladder calculus adjacent to the left UVJ without hydronephrosis/hydroureter. Additional nonobstructing left renal micro-calculus. 2. Again mild diffuse fecal stasis, fatty hepatomegaly, and splenomegaly.
[2021-07-21 14:25] VITALS: BP 129/78; PULSE 80; O2SAT 98
[2021-07-21] MEDS ORDERED: Macrobid 100MG Capsule PO ONE (14:28)
--- NOTE | 2021-07-21 14:31 | ERPHSYRPT ---
- History of Present Illness Time Seen by Provider: 07/21/21 13:45 Source: patient Exam Limitations: no limitations Patient Subjective Stated Complaint: UTI symptoms Triage Nursing Assessment: Patient ambulated back to ED and transferred self to bed. Patient A+O X3. Patient's skin pink, warm and dry. Patient's skin pink, warm and dry. Patient states she has been having urgency, frequency, and burning upon urination for 8 weeks. Patient complains of burning when urinating and a burning pain in the vagina. Physician History: Patient is a 46-year-old female presents to emergency department with urinary symptomology. Patient has been experiencing urinary frequency urgency and dysuria for approximately 8 weeks. Patient has a history of kidney stones and believes she may have a kidney stone as well. Patient had flank pain but no longer has flank pain. Patient's pain is suprapubic primarily. Symptoms are mild to moderate in intensity. No specific worsening improving factors. No trauma. No fever. No nausea vomiting or diaphoresis. No abdominal pain. Patient is otherwise healthy. She voices no other complaints or concerns at this time. Timing/Duration: week(s) (8 weeks) Severity: moderate Modifying Factors: Improves With: nothing Associated Symptoms: No fever Allergies/Adverse Reactions: morphine Adverse Reaction (Mild, Verified 07/21/21 13:31) Vomiting Home Medications: Esomeprazole Magnesium [Nexium] 40 mg PO DAILY 03/06/13 [History] Gemfibrozil 600 mg [Lopid 600 mg] 600 mg PO BID 03/06/13 [History] Glimepiride 4 mg [Amaryl 4 mg] 4 mg PO DAILY 03/06/13 [History] Metformin HCl 1000 mg [Glucophage 1000 MG] 1,000 mg PO BID 03/06/13 [History] Fluoxetine HCl [Prozac] 40 mg PO DAILY 04/19/21 [History] Mirabegron [Myrbetriq] 25 mg PO DAILY 07/21/21 [History] Montelukast Sodium 10 mg [Singulair 10 MG] 10 mg PO DAILY 07/21/21 [History] Omeprazole 40 mg PO DAILY 07/21/21 [History] Zolpidem Tartrate 10 mg [Ambien 10 MG] 10 mg PO DAILY 07/21/21 [History] Hx Tetanus, Diphtheria Vaccination/Date Given: No Hx Influenza Vaccination/Date Given: No Hx Pneumococcal Vaccination/Date Given: No Immunizations Up to Date: Yes Travel Risk - International Travel Have you traveled outside of the country in past 3 weeks: No - Coronavirus Screening Are you exhibiting any of the following symptoms?: No Close contact with a COVID-19 positive Pt in past 14-21 Days: No - Vaccine Status Have you recieved a Covid-19 vaccination: No - Review of Systems Constitutional: No Symptoms, No Fever, No Chills Eyes: No Symptoms Ears, Nose, & Throat: No Symptoms Respiratory: No Symptoms, No Cough, No Dyspnea Cardiac: No Symptoms, No Chest Pain, No Edema, No Syncope Abdominal/Gastrointestinal: No Symptoms, No Abdominal Pain, No Nausea, No Vomiting, No Diarrhea Genitourinary Symptoms: No Symptoms, No Dysuria Musculoskeletal: No Symptoms, No Back Pain, No Neck Pain Skin: No Symptoms, No Rash Neurological: No Symptoms, No Dizziness, No Focal Weakness, No Sensory Changes Psychological: No Symptoms Endocrine: No Symptoms Hematologic/Lymphatic: No Symptoms Immunological/Allergic: No Symptoms All Other Systems: Reviewed and Negative - Past Medical History Pertinent Past Medical History: Yes Neurological History: No Pertinent History ENT History: No Pertinent History Cardiac History: High Cholesterol Respiratory History: Asthma Endocrine Medical History: Diabetes Type II Musculoskeletal History: Arthritis GI Medical History: GERD History: No Pertinent History Psycho-Social History: Depression Female Reproductive Disorders: Abnormal Uterine Bleeding, Other Other Medical History: HAS SOME O.A. IN BACK AND ALSO IN KNEE. WALKS 3-6 MILES A DAY - Past Surgical History Past Surgical History: Yes Neuro Surgical History: No Pertinent History, Other Cardiac: No Pertinent History Gastrointestinal: Hernia Repair Musculoskeletal: Other Female Surgical History: Other Other Surgical History: Back surgery 12/2009 - Social History Smoking Status: Never smoker Exposure to second hand smoke: No Drug Use: none Patient Lives Alone: No Significant Family History: no pertinent family hx - Female History Hx Now: No - Nursing Vital Signs Nursing Vital Signs: Initial Vital Signs Temperature 97.2 F 07/21/21 13:31 Pulse Rate 88 07/21/21 13:31 Respiratory Rate 18 07/21/21 13:31 Blood Pressure 148/88 07/21/21 13:31 O2 Sat by Pulse Oximetry 96 07/21/21 13:31 Pain Scale Pain Intensity 5 - Physical Exam General Appearance: no apparent distress, alert Eye Exam: PERRL/EOMI, eyes nml inspection Ears, Nose, Throat Exam: normal ENT inspection, TMs normal, pharynx normal, moist mucous membranes Neck Exam: normal inspection, non-tender, supple, full range of motion Respiratory Exam: normal breath sounds, lungs clear, airway intact, No respiratory distress Cardiovascular Exam: regular rate/rhythm, normal heart sounds, normal peripheral pulses Gastrointestinal/Abdomen Exam: soft, normal bowel sounds, No tenderness, No mass Back Exam: normal inspection, normal range of motion, No CVA tenderness, No vertebral tenderness Extremity Exam: normal inspection, normal range of motion, pelvis stable Neurologic Exam: alert, 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, cooperative, normal mood/affect, nml cerebellar function, nml station & gait, sensation nml, No motor deficits Skin Exam: normal color, warm, dry, No rash Lymphatic Exam: No adenopathy SpO2 Interpretation: normal SpO2: 98 O2 Delivery: Room Air - Course Nursing assessment & vital signs reviewed: Yes - CT Exams Abdomen/Pelvis CT Interpretation: Tele-radiologist Report (CT abdomen pelvis reveals a 8 mm urinary bladder stone, left 12 mm nephrolithiasis, hepatomegaly, splenomegaly, fecal stasis.) Ordered Tests: Active Orders 24 hr Category Date Time Status ABDOMEN AND PELVIS W/0 CONTRAS [CT] Stat Exams 07/21/21 13:41 Completed CULTURE,URINE Stat Lab 07/21/21 13:39 Received UA W/RFX UR CULTURE Stat Lab 07/21/21 13:39 Completed Medication Summary Discontinued Medications Generic Name Dose Route Start Last Admin Trade Name Dayana PRN Reason Stop Dose Admin Ketorolac Tromethamine 30 mg 07/21/21 13:41 07/21/21 13:44 Ketorolac Tromethamine 30 Mg/Ml Inj IM 07/21/21 13:42 30 mg STAT ONE Administration Ketorolac Tromethamine Confirm 07/21/21 13:43 Ketorolac Tromethamine 30 Mg/Ml Inj Administered 07/21/21 13:44 Dose 30 mg .ROUTE .STK-MED ONE Nitrofurantoin Macrocrystals 100 mg 07/21/21 14:28 07/21/21 14:33 Nitrofurantoin Macro 100 Mg Capsule PO 07/21/21 14:29 100 mg STAT ONE Administration Nitrofurantoin Macrocrystals Confirm 07/21/21 14:32 Nitrofurantoin Macro 100 Mg Capsule Administered 07/21/21 14:33 Dose 100 mg .ROUTE .STK-MED ONE Lab/Rad Data: Laboratory Results 07/21/21 Range/Units 13:39 Urine Color MELLO (YELLOW) Urine Appearance CLEAR (CLEAR) Urine pH 5.0 (5-6) Ur Specific [place] 1.020 (1.005-1.025) Urine Protein 30 (Negative) Urine Ketones NEGATIVE (NEGATIVE) Urine Blood NEGATIVE (0-5) Suresh/ul Urine Nitrite POSITIVE (NEGATIVE) Urine Bilirubin NEGATIVE (NEGATIVE) Urine Urobilinogen 4 (0-1) mg/dL Ur Leukocyte Esterase NEGATIVE (NEGATIVE) Urine WBC (Auto) 3-5 (0-5) /HPF Urine RBC (Auto) 16-25 (0-2) /HPF U Epithel Cells (Auto) RARE (FEW) /HPF Urine Bacteria (Auto) FEW (NEGATIVE) /HPF Urine Mucus (Auto) SLIGHT (NEGATIVE) /HPF Urine Culture Reflexed YES (NO) Urine Glucose NEGATIVE (NEGATIVE) mg/dL - Progress Progress: improved Progress Note: Patient reassessed. She feels well. No active pain at this time. Patient has a urinary tract infection. Patient received a dose of Macrobid in our ED. A prescription for the same was forwarded to patient's pharmacy. Patient appears to have passed a kidney stone which is now sitting in the urinary bladder. This is expected the past as well. No indication for further work-up this time. Patient voices no other complaints. She agrees to follow-up with her primary care doctor within 48 hours for reevaluation. Portions of this note were created with voice recognition technology. There may be grammatical, spelling, punctuation or sound alike errors 07/21/21 14:39 Counseled pt/family regarding: lab results, diagnosis, need for follow-up, rad r esults - Departure Departure Disposition: Home Clinical Impression: Nephrolithiasis, Urinary bladder calculus, Fatty liver, Hepatomegaly, Splenomegaly, Arthritis of spine, Fecal stasis Condition: Stable Critical Care Time: No Referrals: DASH PUENTES PICKLING MACHINE OPERATOR [Primary Care Provider] - Follow up/PCP as directed Additional Instructions: Discharge/Care Plan ROZINA GARCIA was seen on 07/21/21 in the Emergency Room. The patient was counseled regarding Diagnosis,Lab results, Imaging studies, need for follow up and when to return to the Emergency Room. Prescriptions given: Discharge Note I have spoken with the patient and/or caregivers. I have explained the patient's condition, diagnosis and treatment plan based on the information available to me at this time. I have answered the patient's and/or caregiver's questions and addressed any concerns. The patient and/or caregivers have as good understanding of the patient's diagnosis, condition and treatment plan as can be expected at this point. The vital signs have been stable. The patient's condition is stable and appropriate for discharge from the emergency department. The patient will pursue further outpatient evaluation with the primary care physician or other designated or consulting physician as outlined in the discharge instructions. The patient and/or caregivers are agreeable to this plan of care and follow-up instructions have been explained in detail. The patient and/or caregivers have received these instruction. The patient/and or caregivers are aware that any significant change in condition or worsening of symptoms should prompt an immediate return to this or the closest emergency department or call 911. Prescriptions: Nitrofurantoin Macro 100 mg [Macrobid 100MG Capsule] 100 mg PO BID #14 cap
[2021-07-21] MEDS ORDERED: Macrobid 100MG Capsule ONE (14:32)
== END 2021-07-21 14:42 | disposition home or self-care (01) ==
LOC: ED 13:21
DX: N20.0 Calculus of kidney (principal); Z87.442 Personal history of urinary calculi; N21.0 Calculus in bladder; K76.0 Fatty (change of) liver, not elsewhere classified; R16.2 Hepatomegaly with splenomegaly, not elsewhere classified; M47.819 Spondylosis without myelopathy or radiculopathy, site unspecified; K56.41 Fecal impaction; E78.5 Hyperlipidemia, unspecified; E11.8 Type 2 diabetes mellitus with unspecified complications; Z79.84 Long term (current) use of oral hypoglycemic drugs; N39.0 Urinary tract infection, site not specified
CPT/HCPCS: 74176; 81001; 87086; 96372; 99284; J1885; A9270-GY

== ENCOUNTER 2022-01-25 13:23 | Emergency (ER) | payer BC ==
--- NOTE | 2022-01-25 14:29 | ERPHSYRPT ---
- History of Present Illness Time Seen by Provider: 01/25/22 13:50 Source: patient Exam Limitations: no limitations Patient Subjective Stated Complaint: pt states "I hit my head on a steel pipe yesterday. 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 Patient states that she was doing yard work yesterday. Patient excellently hit her head on a steel pipe. Patient did not have any immediate effects from the head injury however today she is experiencing a headache nausea slight dizziness. Headache is primarily over her left eye. Patient advised that she had a concussion approximately 2 years ago. There is no loss of consciousness. No vomiting. No chest pain or shortness of breath, no blurred vision. No numbness tingling or weakness. No neck pain. Cervical spine cleared clinically. Patient declined pain medication. Patient took naproxen and states that the naproxen helped her headache. Patient voices no other complaints or concerns at this time. Timing/Duration: today Severity: moderate Modifying Factors: Improves With: ibuprofen Associated Symptoms: nausea, No vomiting, No diaphoresis, No chest pain, No headaches, No syncope, No seizure, No weakness Allergies/Adverse Reactions: morphine Adverse Reaction (Mild, Verified 01/25/22 13:33) Vomiting Home Medications: Esomeprazole Magnesium [Nexium] 40 mg PO DAILY 03/06/13 [History] Gemfibrozil [Lopid 600 mg] 600 mg PO BID 03/06/13 [History] Glimepiride 4 mg [Amaryl 4 mg] 4 mg PO DAILY 03/06/13 [History] Metformin HCl 1000 mg [Glucophage 1000 MG] 1,000 mg PO BID 03/06/13 [History] Fluoxetine HCl [Prozac] 40 mg PO DAILY 04/19/21 [History] Mirabegron [Myrbetriq] 25 mg PO DAILY 07/21/21 [History] Montelukast Sodium 10 mg [Singulair 10 MG] 10 mg PO DAILY 07/21/21 [History] Omeprazole 40 mg PO DAILY 07/21/21 [History] Zolpidem Tartrate 10 mg [Ambien 10 MG] 10 mg PO DAILY 07/21/21 [History] Hx Tetanus, Diphtheria Vaccination/Date Given: No (unknown) Hx Influenza Vaccination/Date Given: Yes Hx Pneumococcal Vaccination/Date Given: No Travel Risk - International Travel Have you traveled outside of the country in past 3 weeks: No - Coronavirus Screening Are you exhibiting any of the following symptoms?: No Close contact with a COVID-19 positive Pt in past 14-21 Days: No - Vaccine Status Have you recieved a Covid-19 vaccination: No - Review of Systems Constitutional: No Symptoms, No Fever, No Chills Eyes: No Symptoms Ears, Nose, & Throat: No Symptoms Respiratory: No Symptoms, No Cough, No Dyspnea Cardiac: No Symptoms, No Chest Pain, No Edema, No Syncope Abdominal/Gastrointestinal: No Symptoms, No Abdominal Pain, No Nausea, No Vomiting, No Diarrhea Genitourinary Symptoms: No Symptoms, No Dysuria Musculoskeletal: No Symptoms, No Back Pain, No Neck Pain Skin: No Rash Neurological: No Dizziness, No Focal Weakness, No Sensory Changes Psychological: No Symptoms Endocrine: No Symptoms Hematologic/Lymphatic: No Symptoms Immunological/Allergic: No Symptoms All Other Systems: Reviewed and Negative - Past Medical History Pertinent Past Medical History: Yes Neurological History: No Pertinent History ENT History: No Pertinent History Cardiac History: High Cholesterol Respiratory History: Asthma Endocrine Medical History: Diabetes Type II Musculoskeletal History: Arthritis GI Medical History: GERD History: No Pertinent History Psycho-Social History: Depression Female Reproductive Disorders: Abnormal Uterine Bleeding, Other Other Medical History: HAS SOME O.A. IN BACK AND ALSO IN KNEE. WALKS 3-6 MILES A DAY - Past Surgical History Past Surgical History: Yes Neuro Surgical History: No Pertinent History, Other Cardiac: No Pertinent History Gastrointestinal: Hernia Repair Musculoskeletal: Other Female Surgical History: Dilation & Curettage, Other Other Surgical History: Back surgery 12/2009; thermal ablation - Social History Smoking Status: Smoker, status unknown Exposure to second hand smoke: No Drug Use: none Patient Lives Alone: No Significant Family History: no pertinent family hx - Female History Hx Now: No - Nursing Vital Signs Nursing Vital Signs: Initial Vital Signs Temperature 98.2 F 01/25/22 13:33 Pulse Rate 77 01/25/22 13:33 Respiratory Rate 18 01/25/22 13:33 Blood Pressure 133/82 01/25/22 13:33 O2 Sat by Pulse Oximetry 97 01/25/22 13:33 Pain Scale Pain Intensity 0 - Physical Exam General Appearance: no apparent distress, alert Eye Exam: PERRL/EOMI, eyes nml inspection Ears, Nose, Throat Exam: normal ENT inspection, TMs normal, pharynx normal, moist mucous membranes Neck Exam: normal inspection, non-tender, supple, full range of motion Respiratory Exam: normal breath sounds, lungs clear, airway intact, No chest tenderness, No respiratory distress Cardiovascular Exam: regular rate/rhythm, normal heart sounds, normal peripheral pulses Gastrointestinal/Abdomen Exam: soft, normal bowel sounds, No tenderness, No mass Back Exam: normal inspection, normal range of motion, No CVA tenderness, No vertebral tenderness Extremity Exam: normal inspection, normal range of motion, pelvis stable Neurologic Exam: alert, 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, cooperative, normal mood/affect, nml cerebellar function, nml station & gait, sensation nml, No motor deficits Skin Exam: normal color, warm, dry, No rash Lymphatic Exam: No adenopathy SpO2 Interpretation: normal SpO2: 97 O2 Delivery: Room Air - Course Nursing assessment & vital signs reviewed: Yes - CT Exams Head CT Interpretation: Tele-radiologist Report (CT head reveals right maxillary sinusitis. Otherwise no acute intracranial process observed) Ordered Tests: Active Orders 24 hr Category Date Time Status HEAD WITHOUT CONTRAST [CT] Stat Exams 01/25/22 14:21 Completed Medication Summary Discontinued Medications Generic Name Dose Route Start Last Admin Trade Name Dayana PRN Reason Stop Dose Admin Ondansetron HCl 4 mg 01/25/22 14:45 01/25/22 14:46 Zofran 4 Mg/Udtablet Orally Disintegrating PO 01/25/22 14:46 4 mg STAT ONE Administration Ondansetron HCl Confirm 01/25/22 14:45 Zofran 4 Mg/Udtablet Orally Disintegrating Administered 01/25/22 14:46 Dose 4 mg .ROUTE .STK-MED ONE - Progress Progress: improved Progress Note: Patient reassessed. She is well. Nausea improved after Zofran administration. No vomiting. Repeat neuro exam within normal limits. CT head negative for acute intracranial pathology. Right maxillary sinusitis observed. No indication for further work-up at this time. Will discharge home. Patient agrees to follow-up with primary care doctor within 48 hours for evaluation. Portions of this note were created with voice recognition technology. There may be grammatical, spelling, punctuation or sound alike errors 01/25/22 15:44 Counseled pt/family regarding: diagnosis, need for follow-up, rad results - Departure Departure Disposition: Home Clinical Impression: Right maxillary sinusitis, Concussion Condition: Stable Critical Care Time: No Referrals: DASH PUENTES NP [Primary Care Provider] - Follow up/PCP as directed Additional Instructions: Discharge/Care Plan ROZINA GARCIA was seen on 01/25/22 in the Emergency Room. The patient was counseled regarding Diagnosis,Lab results, Imaging studies, need for follow up and when to return to the Emergency Room. Prescriptions given: Discharge Note I have spoken with the patient and/or caregivers. I have explained the patient's condition, diagnosis and treatment plan based on the information available to me at this time. I have answered the patient's and/or caregiver's questions and addressed any concerns. The patient and/or caregivers have as good understanding of the patient's diagnosis, condition and treatment plan as can be expected at this point. The vital signs have been stable. The patient's condition is stable and appropriate for discharge from the emergency department. The patient will pursue further outpatient evaluation with the primary care physician or other designated or consulting physician as outlined in the discharge instructions. The patient and/or caregivers are agreeable to this plan of care and follow-up instructions have been explained in detail. The patient and/or caregivers have received these instruction. The patient/and or caregivers are aware that any significant change in condition or worsening of symptoms should prompt an immediate return to this or the closest emergency department or call 911. Prescriptions: Ondansetron ODT 4 MG [Zofran Odt 4 mg] 4 mg PO Q6H PRN PRN #10 tablet PRN Reason: Vomiting
[2022-01-25] MEDS ORDERED: ZOFRAN ODT 4 MG ONE (14:45)
[2022-01-25] MEDS ORDERED: ZOFRAN ODT 4 MG PO ONE (14:45)
--- NOTE | 2022-01-25 15:26 | XRAY ---
Indication: Headache and nausea following injury one day earlier. Multiple contiguous axial images obtained through the head without contrast. Comparison: January 27, 2020 Continued normal appearing brain parenchyma, ventricles, and bony calvarium. Again near-complete opacification right maxillary sinus. Remaining paranasal sinuses and mastoid air cells are clear. Impression: Again right maxillary sinus disease. Remaining CT head without contrast exam is again normal.
[2022-01-25 15:45] VITALS: BP 135/68; PULSE 74; O2SAT 97
== END 2022-01-25 15:52 | disposition home or self-care (01) ==
LOC: ED 13:23
DX: S06.0X0A Concussion without loss of consciousness, initial encounter (principal); W22.8XXA Striking against or struck by other objects, initial encounter; Y93.H9 Activity, other involving exterior property and land maintenance, building and construction; Y92.007 Garden or yard of unspecified non-institutional (private) residence as the place of occurrence of the external cause; J32.0 Chronic maxillary sinusitis; R51.9 Headache, unspecified; R11.0 Nausea; R42 Dizziness and giddiness; E78.5 Hyperlipidemia, unspecified; E11.9 Type 2 diabetes mellitus without complications; Z79.84 Long term (current) use of oral hypoglycemic drugs; Z79.899 Other long term (current) drug therapy; Z28.310 Unvaccinated for COVID-19
CPT/HCPCS: 70450; 99284; Q0162

== ENCOUNTER 2022-03-25 11:24 | Emergency (ER) | payer BC ==
[2022-03-25 13:08] LABS: Bacteria FEW /HPF (NEGATIVE); Crystals Unidentified 25-50 /HPF (NEGATIVE); Epithelial Cells PACKED /HPF (FEW); Mucus SLIGHT /HPF (NEGATIVE); WBC >100 /HPF (0-5)
[2022-03-25 13:10] LABS: Appearance SLIGHTLY CLOUDY (CLEAR); Bilirubin NEGATIVE (NEGATIVE); Budding Yeast Few /HPF (NEGATIVE); Glucose 100 mg/dL (NEGATIVE); Ketones NEGATIVE (NEGATIVE); Specific Gravity 1.025 (1.005-1.025)
[2022-03-25 13:11] LABS: Nitrite NEGATIVE (NEGATIVE); Protein,Urine Dip NEGATIVE (Negative); RBC NEGATIVE Ery/ul (0-5); Urine Cultured Indicated? YES; Urobilinogen 0.2 mg/dL (0-1)
[2022-03-25 13:12] LABS: Dipstick done @ ? MAIN LAB
--- NOTE | 2022-03-25 13:30 | ERPHSYRPT ---
- History of Present Illness Historian: patient Exam Limitations: no limitations Patient Subjective Stated Complaint: Left sided flank pain Triage Nursing Assessment: Patient ambulated back to ED and transferred self to bed. Patient A+O X 3. Patient's skin pink, warm and dry. Patient complains of left sided flank pain that goes into left sided abdominal pain 5/10. Patient has a hx of kidney stones and feels like she has one. Abdomen soft and round with BS X 4. Physician History: 46 yo wf w L CVA pain x 1 week. Pain is stabbing and radiates to R inguinal area. It is 5/10 at present and has been up to a 9. Nothing seems to make it better or worse. She has urinary pressure/nausea/frequency wo dysuria/hematuria/fever. Pt believes that she has a kidney stone. Timing/Duration: other (1week) Quality: sharpness, stabbing Abdominal Pain Onset Location: other (L CVA) Pain Radiation: other (L inguinal area) Severity of Pain-Max: severe Severity of Pain-Current: moderate Modifying Factors: Improves With: nothing Associated Symptoms: back, nausea, No chest pain, No diaphoresis, No diarrhea, No fever/chills, No fatigue, No headache, No heartburn, No loss of appetite, No neck pain, No rash, No shortness of breath, No vomiting Previous symptoms: same symptoms as today Allergies/Adverse Reactions: morphine Adverse Reaction (Mild, Verified 03/25/22 11:30) Vomiting Home Medications: Esomeprazole Magnesium [Nexium] 40 mg PO DAILY 03/06/13 [History] Gemfibrozil [Lopid 600 mg] 600 mg PO BID 03/06/13 [History] Glimepiride 4 mg [Amaryl 4 mg] 4 mg PO DAILY 03/06/13 [History] Metformin HCl 1000 mg [Glucophage 1000 MG] 1,000 mg PO BID 03/06/13 [History] Fluoxetine HCl [Prozac] 40 mg PO DAILY 04/19/21 [History] Mirabegron [Myrbetriq] 25 mg PO DAILY 07/21/21 [History] Montelukast Sodium 10 mg [Singulair 10 MG] 10 mg PO DAILY 07/21/21 [History] Omeprazole 40 mg PO DAILY 07/21/21 [History] Zolpidem Tartrate 10 mg [Ambien 10 MG] 10 mg PO DAILY 07/21/21 [History] Hx Tetanus, Diphtheria Vaccination/Date Given: No (unknown) Hx Influenza Vaccination/Date Given: Yes Hx Pneumococcal Vaccination/Date Given: No Immunizations Up to Date: Yes Travel Risk - International Travel Have you traveled outside of the country in past 3 weeks: No - Coronavirus Screening Are you exhibiting any of the following symptoms?: No Close contact with a COVID-19 positive Pt in past 14-21 Days: No - Vaccine Status Have you recieved a Covid-19 vaccination: No - Review of Systems Constitutional: No Symptoms Eyes: No Symptoms Ears, Nose, & Throat: No Symptoms Respiratory: No Symptoms Cardiac: No Symptoms Abdominal/Gastrointestinal: No Symptoms Genitourinary Symptoms: No Symptoms, Frequency Musculoskeletal: No Symptoms, Back Pain Skin: No Symptoms Neurological: No Symptoms Psychological: No Symptoms Endocrine: No Symptoms Hematologic/Lymphatic: No Symptoms Immunological/Allergic: No Symptoms - Past Medical History Pertinent Past Medical History: Yes Neurological History: No Pertinent History ENT History: No Pertinent History Cardiac History: High Cholesterol Respiratory History: Asthma Endocrine Medical History: Diabetes Type II Musculoskeletal History: Arthritis GI Medical History: GERD History: No Pertinent History Psycho-Social History: Depression Female Reproductive Disorders: Abnormal Uterine Bleeding, Other Other Medical History: HAS SOME O.A. IN BACK AND ALSO IN KNEE. WALKS 3-6 MILES A DAY - Past Surgical History Past Surgical History: Yes Neuro Surgical History: No Pertinent History, Other Cardiac: No Pertinent History Gastrointestinal: Hernia Repair Musculoskeletal: Other Female Surgical History: Dilation & Curettage, Other Other Surgical History: Back surgery 12/2009; thermal ablation - Social History Smoking Status: Smoker, status unknown Exposure to second hand smoke: No Drug Use: none Patient Lives Alone: No Significant Family History: no pertinent family hx - Female History Hx Last Menstrual Period: ablation 2009 Hx Now: No - Nursing Vital Signs Nursing Vital Signs: Initial Vital Signs Temperature 98.0 F 03/25/22 11:32 Pulse Rate 78 03/25/22 11:32 Respiratory Rate 18 03/25/22 11:32 Blood Pressure 152/109 03/25/22 11:32 O2 Sat by Pulse Oximetry 97 03/25/22 11:32 Pain Scale Pain Intensity 5 Hypertensive - Physical Exam General Appearance: no apparent distress (Pt reading a book) Eye Exam: PERRL/EOMI, eyes nml inspection Ears, Nose, Throat Exam: normal ENT inspection, TMs normal, pharynx normal, moist mucous membranes Neck Exam: normal inspection, non-tender, supple, full range of motion, No meningismus, No mass, No Brudzinski, No Kernig's Respiratory Exam: normal breath sounds, lungs clear, airway intact, No respiratory distress Cardiovascular Exam: regular rate/rhythm, normal heart sounds, normal peripheral pulses, capillary refill <2 sec, No murmur Gastrointestinal/Abdomen Exam: soft, normal bowel sounds, No tenderness, No distention Back Exam: normal inspection, normal range of motion, No CVA tenderness, No vertebral tenderness Extremity Exam: normal inspection, normal range of motion Neurologic Exam: alert, 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, cooperative, 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, normal mood/affect, nml cerebellar function, nml station & gait, sensation nml, No motor deficits, No sensory deficit Skin Exam: normal color, warm, dry Lymphatic Exam: No adenopathy SpO2 Interpretation: normal SpO2: 97 O2 Delivery: Room Air - CT Exams Abdomen/Pelvis CT Interpretation: Discussed w/radiologist (No uterolithiasis/3cm L ovarian cyst/ANN) Ordered Tests: Active Orders 24 hr Category Date Time Status ABDOMEN AND PELVIS W/0 CONTRAS [CT] Stat Exams 03/25/22 11:50 Completed CULTURE,URINE Stat Lab 03/25/22 12:54 Received UA W/RFX CULTURE Stat Lab 03/25/22 12:54 Completed Lab/Rad Data: Laboratory Results 03/25/22 Range/Units 12:54 Urinalys Dipstick Clnc MAIN LAB Urine Color YELLOW (YELLOW) Urine Appearance SLIGHTLY CLOUDY (CLEAR) Urine pH 8.0 (5-6) Ur Specific [place] 1.025 (1.005-1.025) POC Urine Protein Conf NEGATIVE (Negative) Urine Ketones NEGATIVE (NEGATIVE) Urine Nitrite NEGATIVE (NEGATIVE) Urine Bilirubin NEGATIVE (NEGATIVE) Urine Urobilinogen 0.2 (0-1) mg/dL Urine Leukocytes NEGATIVE (NEGATIVE) Urine WBC (Auto) >100 (0-5) /HPF Urine RBC (Auto) 11-15 (0-2) /HPF U Epithel Cells (Auto) PACKED (FEW) /HPF Urine Bacteria (Auto) FEW (NEGATIVE) /HPF Urine RBC NEGATIVE (0-5) Suresh/ul Unidentified Crystals 25-50 (NEGATIVE) /HPF Urine Mucus (Auto) SLIGHT (NEGATIVE) /HPF Urine Yeast (Budding) Few (NEGATIVE) /HPF Ur Culture Indicated? YES Urine Glucose 100 (NEGATIVE) mg/dL - Progress Progress Note: 03/25/22 13:34 Pt refused pain meds during entire stay Counseled pt/family regarding: lab results, diagnosis, need for follow-up, rad results - Departure Departure Disposition: Home Clinical Impression: UTI (urinary tract infection) Condition: Stable Critical Care Time: No Referrals: DASH PUENTES NP [Primary Care Provider] - Follow up/PCP as directed Instructions: Urinary Tract Infection, Adult (DC) Additional Instructions: Fluids Motrin/Tylenol for pain Follow up with your family MD or Urologist Return to ER for increasing pain or temperature greater than 100.5 Prescriptions: Sulfamethoxazole/Trimethoprim [Bactrim Ds Tablet] 1 each PO BID 5 Days #10 tablet
--- NOTE | 2022-03-25 13:34 | XRAY ---
Indication: Left flank pain. History kidney stones. Multiple contiguous axial images obtained through the abdomen and pelvis without contrast using renal stone protocol. Comparison: April 21, 2021 Lung bases remain clear. Heart not enlarged. Inferior left renal calyx again demonstrates 1.2 cm calculus with new punctate calculus. No hydronephrosis or hydroureter. No renal calculus or evidence for obstructive uropathy on the right. New 3 cm left ovary cyst. No free fluid/air. Noncontrasted stomach and bowel loops are nonobstructed again with appendectomy. There remains mild diffuse scattered colonic fecal debris throughout. Again 24.5 cm fatty hepatomegaly and 13.9 cm splenomegaly. Remaining liver, gallbladder, pancreas, spleen, general glands, kidneys, ureters, bladder, and uterus are unremarkable for noncontrast exam. Again minimal aortoiliac calcifications without AAA. Osseous structures intact again with mild degenerative changes throughout the spine. Impression: 1. 2 nonobstructing left renal calculi. 2. New 3 cm left ovary cyst. 3. Again diffuse fecal stasis, fatty hepatomegaly, splenomegaly, and degenerative spondylosis.
[2022-03-25 13:49] VITALS: BP 154/87; PULSE 87
[2022-03-25 21:17] VITALS: O2SAT 97
== END 2022-03-25 13:50 | disposition home or self-care (01) ==
LOC: ED 11:24
DX: N39.0 Urinary tract infection, site not specified (principal); R10.9 Unspecified abdominal pain; R11.0 Nausea; R35.0 Frequency of micturition; E78.5 Hyperlipidemia, unspecified; E11.9 Type 2 diabetes mellitus without complications; Z72.0 Tobacco use; Z79.84 Long term (current) use of oral hypoglycemic drugs; Z79.899 Other long term (current) drug therapy; Z28.310 Unvaccinated for COVID-19
CPT/HCPCS: 74176; 81015; 87086; 99283

== ENCOUNTER 2022-03-28 12:15 | Emergency (ER) | payer BC ==
[2022-03-28] MEDS ORDERED: GI COCKTAIL 45 ML (Maalox/Lidocaine) PO ONE (13:25)
[2022-03-28] MEDS ORDERED: MAALOX ES 30 ML UNIT DOSE ONE (13:30)
[2022-03-28] MEDS ORDERED: XYLOCAINE VISCOUS 2% 15 ML CUP ONE (13:30)
[2022-03-28 13:33] LABS: Absolute Neutrophil Ct (ANC) 4.94 x10^3/uL (1.4-6.9); Basophil (Absolute #) 0.06 x10^3/uL (0-0.4); Eosinophil % 1.6 % (0.00-5.0); Eosinophil (Absolute #) 0.12 x10^3/uL (0-0.5); Hematocrit 43.1 % (35-47); Hemoglobin 13.9 g/dL (12.0-16.0); Lymphocyte (Absolute #) 1.87 x10^3/uL (1.0-4.6); Lymphocytes % 25.2 % (24.0-44.0); Mean Cell Volume 90.2 fL (78-100); Mean Corpuscular Hemoglobin 29.1 pg (26-32); Mean Corpuscular Hgb Concent. 32.3 g/dL (32-36); Mean Platelet Volume 11.8 fL (7.5-11.0); Monocyte (Absolute #) 0.41 x10^3/uL (0.0-1.3); Monocytes % 5.5 % (0.0-12.0); Neutrophil % 66.5 % (36.0-66.0); Platelet Count 266 x10^3/uL (150-450); Red Blood Count 4.78 x10^6/uL (4.1-5.4); Red Cell Distribution Width 12.9 % (11.5-14.0); White Blood Count 7.4 x10^3/uL (4.0-10.5)
[2022-03-28 13:43] LABS: ALBUMIN 4.5 g/dL (3.5-5.0); ALKALINE PHOSPHATASE 80 U/L (38-126); BLOOD UREA NITROGEN 17 mg/dL (7-17); CHLORIDE 98 mmol/L (98-107); Calcium 9.7 mg/dL (8.4-10.2); Carbon Dioxide 28 mmol/L (22-30); Creatinine 1 0.86 mg/dL (0.52-1.04); EST GLOMERULAR FILTRATION RATE > 60.0 ML/MIN; Glucose 250 mg/dL (74-106); LIPASE 81 U/L (23-300); Potassium 4.5 mmol/L (3.5-5.1); SGOT/AST 31 U/L (14-36); SGPT/ALT 28 U/L (0-35); SODIUM 137 mmol/L (137-145); Total Protein 7.9 g/dL (6.3-8.2)
[2022-03-28 14:10] VITALS: BP 140/90; PULSE 77; O2SAT 95
--- NOTE | 2022-03-28 14:19 | ERPHSYRPT ---
- History of Present Illness Time Seen by Provider: 03/28/22 12:28 Historian: patient Exam Limitations: no limitations Patient Subjective Stated Complaint: PT states "I am having belly pain, headache, nauea, vomiting. I just do not feel well." Triage Nursing Assessment: Pt presented alert and oriented X 3, skin pwd Pt ambulates with an upright steady gait, able to speak in clear full sentences pt in no apparent respiratory distress. Pt resting comfortably on the bed. Physician History: This is a 46 yr old pt. presenting to ED for evaluation of epigastric abdominal pain x 2 weeks - Reports she was in ED 2 days ago, had CT scan was advised that she is constipated and d/c home - Abdominal pain- epigastric and RUQ areas, 1-2/10, burning pain, feels bloated, associated with nausea, no aggravating or relieving s/s, non-radiating - Denies fever/diarrhea/recent antibiotic use/trauma - Takes a PPI at home - Has tried miralax, prunes- has not helped with constipation. - Has had uterine ablation in 2009, and an appendectomy Timing/Duration: week(s) (2) Activities at Onset: none Quality: burning Abdominal Pain Onset Location: epigastric Pain Radiation: no radiation Severity of Pain-Max: mild Modifying Factors: Improves With: antacids Associated Symptoms: denies symptoms Previous symptoms: no prior history Allergies/Adverse Reactions: morphine Adverse Reaction (Mild, Verified 03/25/22 11:30) Vomiting Home Medications: Esomeprazole Magnesium [Nexium] 40 mg PO DAILY 03/06/13 [History] Gemfibrozil [Lopid 600 mg] 600 mg PO BID 03/06/13 [History] Glimepiride 4 mg [Amaryl 4 mg] 4 mg PO DAILY 03/06/13 [History] Metformin HCl 1000 mg [Glucophage 1000 MG] 1,000 mg PO BID 03/06/13 [History] Fluoxetine HCl [Prozac] 40 mg PO DAILY 04/19/21 [History] Mirabegron [Myrbetriq] 25 mg PO DAILY 07/21/21 [History] Montelukast Sodium 10 mg [Singulair 10 MG] 10 mg PO DAILY 07/21/21 [History] Omeprazole 40 mg PO DAILY 07/21/21 [History] Zolpidem Tartrate 10 mg [Ambien 10 MG] 10 mg PO DAILY 07/21/21 [History] Hx Tetanus, Diphtheria Vaccination/Date Given: No (unknown) Hx Influenza Vaccination/Date Given: Yes Hx Pneumococcal Vaccination/Date Given: No Immunizations Up to Date: Yes Travel Risk - International Travel Have you traveled outside of the country in past 3 weeks: No - Coronavirus Screening Are you exhibiting any of the following symptoms?: Yes Symptoms: Headaches/Body Aches/Fatigue - Vaccine Status Have you recieved a Covid-19 vaccination: No - Review of Systems Constitutional: No Fever, No Chills Eyes: No Discharge, No Vision Changes Ears, Nose, & Throat: No Ear Pain, No Nose Congestion, No Sinus Drainage, No Epistaxis, No Painful Swallowing Respiratory: No Cough, No Dyspnea, No Dyspnea on Exertion (JACKSON) Cardiac: No Chest Pain, No Palpitations, No Syncope Abdominal/Gastrointestinal: Abdominal Pain, Nausea, No Diarrhea, No Constipation, No Hematemesis, No Hematochezia, No Melena, No Dysphagia, No Appetite Changes Genitourinary Symptoms: No Dysuria, No Frequency, No Hematuria, No Urgency Musculoskeletal: No Arthralgias, No Back Pain Skin: No Cellulitis, No Rash Neurological: No Dizziness, No Focal Weakness, No Headache, No Sensory Changes Psychological: No Alcohol Abuse, No Drug Abuse Endocrine: Polydipsia, No Polyuria Hematologic/Lymphatic: No Symptoms Immunological/Allergic: No Symptoms All Other Systems: Reviewed and Negative - Past Medical History Pertinent Past Medical History: Yes Neurological History: No Pertinent History ENT History: No Pertinent History Cardiac History: High Cholesterol Respiratory History: Asthma Endocrine Medical History: Diabetes Type II Musculoskeletal History: Arthritis GI Medical History: GERD History: No Pertinent History Psycho-Social History: Depression Female Reproductive Disorders: Abnormal Uterine Bleeding, Other Other Medical History: HAS SOME O.A. IN BACK AND ALSO IN KNEE. WALKS 3-6 MILES A DAY - Past Surgical History Past Surgical History: Yes Neuro Surgical History: No Pertinent History, Other Cardiac: No Pertinent History Gastrointestinal: Hernia Repair Musculoskeletal: Other Female Surgical History: Dilation & Curettage, Other Other Surgical History: Back surgery 12/2009; thermal ablation - Social History Smoking Status: Smoker, status unknown Exposure to second hand smoke: No Drug Use: none Patient Lives Alone: No Significant Family History: no pertinent family hx - Female History Hx Last Menstrual Period: 12 years ago ablasion Hx Now: No - Nursing Vital Signs Nursing Vital Signs: Initial Vital Signs Temperature 96.4 F 03/28/22 12:21 Pulse Rate 76 03/28/22 12:21 Respiratory Rate 18 03/28/22 12:21 Blood Pressure 164/82 03/28/22 12:21 O2 Sat by Pulse Oximetry 96 03/28/22 12:21 Pain Scale Pain Intensity 4 - Physical Exam General Appearance: no apparent distress Eye Exam: PERRL/EOMI, eyes nml inspection Ears, Nose, Throat Exam: normal ENT inspection, TMs normal, pharynx normal Neck Exam: normal inspection, non-tender, supple, full range of motion Respiratory Exam: normal breath sounds, lungs clear, airway intact, No respiratory distress Cardiovascular Exam: regular rate/rhythm, normal heart sounds, normal peripheral pulses Gastrointestinal/Abdomen Exam: soft, normal bowel sounds, tenderness (epigastric and RUQ areas, Bowman's negative) Pelvic Exam: not done Rectal Exam: deferred Back Exam: normal inspection, No CVA tenderness Extremity Exam: normal inspection, normal range of motion Neurologic Exam: alert, 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, cooperative Skin Exam: normal color, warm Lymphatic Exam: No adenopathy SpO2 Interpretation: normal SpO2: 95 Ordered Tests: Medication Summary Discontinued Medications Generic Name Dose Route Start Last Admin Trade Name Freq PRN Reason Stop Dose Admin Al Hydrox/Mg Hydrox/Simethicone Confirm 03/28/22 13:30 Mag Hydrox/Al Hydrox/Simeth 30 Ml Udcup Administered 03/28/22 13:31 Dose 30 ml .ROUTE .STK-MED ONE Lidocaine HCl Confirm 03/28/22 13:30 Lidocaine Hcl 2% Viscous 15 Ml Udcup Administered 03/28/22 13:31 Dose 15 ml .ROUTE .STK-MED ONE Magnesium Hydroxide 45 ml 03/28/22 13:25 03/28/22 13:39 Mag Hydrx/Alum Hyd/Simeth/Lido 45 Ml Bottle PO 03/28/22 13:26 45 ml STAT ONE Administration Lab/Rad Data: Laboratory Result Diagrams 03/28/22 13:02 03/28/22 13:02 Laboratory Results 03/28/22 03/28/22 Range/Units 13:02 13:02 WBC 7.4 (4.0-10.5) x10^3/uL RBC 4.78 (4.1-5.4) x10^6/uL Hgb 13.9 (12.0-16.0) g/dL Hct 43.1 (35-47) % MCV 90.2 (78-100) fL MCH 29.1 (26-32) pg MCHC 32.3 (32-36) g/dL RDW 12.9 (11.5-14.0) % Plt Count 266 (150-450) x10^3/uL MPV 11.8 H (7.5-11.0) fL Gran % 66.5 H (36.0-66.0) % Immature Gran % (Auto) 0.4 (0.00-0.4) % Nucleat RBC Rel Count 0.0 (0.00-0.1) % Eos # (Auto) 0.12 (0-0.5) x10^3/uL Immature Gran # (Auto) 0.03 (0.00-0.03) x10^3u/L Absolute Lymphs (auto) 1.87 (1.0-4.6) x10^3/uL Absolute Monos (auto) 0.41 (0.0-1.3) x10^3/uL Absolute Nucleated RBC 0.00 (0.00-0.01) x10^3u/L Lymphocytes % 25.2 (24.0-44.0) % Monocytes % 5.5 (0.0-12.0) % Eosinophils % 1.6 (0.00-5.0) % Basophils % 0.8 (0.0-0.4) % Absolute Granulocytes 4.94 (1.4-6.9) x10^3/uL Basophils # 0.06 (0-0.4) x10^3/uL Sodium 137 (137-145) mmol/L Potassium 4.5 (3.5-5.1) mmol/L Chloride 98 (98-107) mmol/L Carbon Dioxide 28 (22-30) mmol/L Anion Gap 15.0 (5-15) MEQ/L BUN 17 (7-17) mg/dL Creatinine 0.86 (0.52-1.04) mg/dL Estimated GFR > 60.0 ML/MIN Glucose 250 H (74-106) mg/dL Calcium 9.7 (8.4-10.2) mg/dL Total Bilirubin 0.40 (0.2-1.3) mg/dL AST 31 (14-36) U/L ALT 28 (0-35) U/L Alkaline Phosphatase 80 (38-126) U/L Serum Total Protein 7.9 (6.3-8.2) g/dL Albumin 4.5 (3.5-5.0) g/dL Lipase 81 (23-300) U/L - Progress Progress: improved, re-examined (improved after GI cocktail) Progress Note: 1) Abdominal pain in a 46 yr old - Initially given GI cocktail - US Gallbladder done due to RUQ tenderness alvin obese 39 yr old pt- shows no evidence of cholelithiasis - CBC. CMP, Lipase- WNL - s/s improved with GI cocktail - Reviewed CT abdomen and labs done 2 days ago in our ED- shows evidence of constipation and no other acute abnormality. Advised increased fluid intake, try OTC magnesium citrate/suppositories/ milk of magnesia. Pt. voiced understand ing. - Advised to continue PPI, but given ongoing epigastric tenderness in a pt. with GERD, advised GI f/u - Also advised close f/u with PCP in am - - Pt. advised to return for any new or worsening s/s or any concern at all. - Has no further questions. - Departure Clinical Impression: GERD (gastroesophageal reflux disease), Constipation Condition: Stable Critical Care Time: No Referrals: DASH PUENTES, ALICE [Primary Care Provider] - Follow up/PCP as directed Instructions: Constipation in Adults, Acid Reflux, Adult and Adolescent ED Additional Instructions: Discharge/Care Plan ROZINA GARCIA was seen on 03/28/22 in the Emergency Room. The patient was counseled regarding Diagnosis,Lab results, Imaging studies, need for follow up and when to return to the Emergency Room. Prescriptions given: Discharge Note I have spoken with the patient and/or caregivers. I have explained the patient's condition, diagnosis and treatment plan based on the information available to me at this time. I have answered the patient's and/or caregiver's questions and addressed any concerns. The patient and/or caregivers have as good understanding of the patient's diagnosis, condition and treatment plan as can be expected at this point. The vital signs have been stable. The patient's condition is stable and appropriate for discharge from the emergency department. The patient will pursue further outpatient evaluation with the primary care physician or other designated or consulting physician as outlined in the jigar ham instructions. The patient and/or caregivers are agreeable to this plan of care and follow-up instructions have been explained in detail. The patient and/or caregivers have received these instruction. The patient/and or caregivers are aware that any significant change in condition or worsening of symptoms should prompt an immediate return to this or the closest emergency department or call 911.
--- NOTE | 2022-03-28 14:31 | XRAY ---
Exam: Abdominal ultrasound limited from 03/28/2022. Comparison: CT of the abdomen and pelvis without IV contrast from 03/25/2022. Indication: Right upper quadrant abdominal pain. Findings: The pancreas is not well seen due to overlying bowel gas. A portion of the body and proximal tail regions were identified. The liver reveals diffuse increased echogenicity suggestive of fatty infiltration. Normal color blood flow within the main portal vein toward the liver is seen. No obvious focal liver mass is seen. No intrahepatic biliary duct distention is seen. The gallbladder is partially distended. I see no intraluminal gallstones or gallbladder wall thickening. The proximal common bile duct measures 4 mm in diameter which is normal. The right kidney measures 15.0 cm x 4.8 cm x 4.9 cm and reveals no mass or hydronephrosis. It appears that the upper collecting system of the right kidney is duplicated on the recent CT study from 03/25/2022. There is no free fluid within the right upper quadrant. Impression: 1. The gallbladder ultrasound appears unremarkable without evidence of cholelithiasis, gallbladder enlargement, gallbladder wall thickening, or biliary duct distention. 2. Fatty infiltration within the liver is seen. 3. The upper collecting system of the right kidney appears duplicated on the CT abdomen and pelvis study from 03/25/2022. No other right renal abnormality is sonographically seen. 4. Poor visualization of the pancreas due to overlying bowel gas.
== END 2022-03-28 14:30 | disposition home or self-care (01) ==
LOC: ED 12:15
DX: K21.9 Gastro-esophageal reflux disease without esophagitis (principal); K59.00 Constipation, unspecified; R10.13 Epigastric pain; R10.11 Right upper quadrant pain; R11.0 Nausea; E78.5 Hyperlipidemia, unspecified; E11.9 Type 2 diabetes mellitus without complications; Z72.0 Tobacco use; Z79.84 Long term (current) use of oral hypoglycemic drugs; Z79.899 Other long term (current) drug therapy; Z28.310 Unvaccinated for COVID-19
CPT/HCPCS: 36415; 76705; 80053; 83690; 85025; 99283; A9270-GY

== ENCOUNTER 2022-10-14 15:44 | Emergency (ER) | payer BC ==
[2022-10-14] MEDS ORDERED: solu-MEDROL 125 MG, Sterile H2O 10 ml 2 ML IV ONE ×2 (15:58)
[2022-10-14] MEDS ORDERED: BENADRYL 50 MG/ML IV ONE (15:58)
[2022-10-14] MEDS ORDERED: solu-MEDROL ONE (16:13)
[2022-10-14] MEDS ORDERED: Sterile H2O 10 ml IJ ONE (16:13)
[2022-10-14] MEDS ORDERED: BENADRYL 50 MG/ML ONE (16:13)
[2022-10-14 16:50] VITALS: BP 134/98; PULSE 80
[2022-10-14 16:55] VITALS: O2SAT 98
--- NOTE | 2022-10-14 16:55 | ERPHSYRPT ---
- History of Present Illness Time Seen by Provider: 10/14/22 16:00 Source: patient Exam Limitations: no limitations Patient Subjective Stated Complaint: pt here for itching and burning to right ear and right arm that started today, Triage Nursing Assessment: pt alert, resp easy, skin w/d/p, has redenss to right ear and right elbow, itching all over, Physician History: Patient is a 47-year-old white female who presents with a complaint of a burning itching rash on her right arm just above the elbow and the right side of her face. She has no known exposures to any allergens. This started about 2 PM today. She has a history of rashes usually when she is outside working in the sunshine in her garden. She has not had much sun exposure today and she has not been in her garden. She has multiple medications but review of those revealed none with a photosensitivity reaction. Timing/Duration: today, hour(s) (3) Quality: burning, itchy Severity: moderate Location: face (Right arm and face), extremities Possible Causes: no cause identified Modifying Factors: Improves With: antihistamine, prednisone Allergies/Adverse Reactions: morphine Adverse Reaction (Mild, Verified 10/14/22 15:51) Vomiting Home Medications: Esomeprazole Magnesium [Nexium] 40 mg PO DAILY 03/06/13 [History] Gemfibrozil [Lopid 600 mg] 600 mg PO BID 03/06/13 [History] Metformin HCl 1000 mg [Glucophage 1000 MG] 1,000 mg PO BID 03/06/13 [History] Fluoxetine HCl [Prozac] 40 mg PO DAILY 04/19/21 [History] Montelukast Sodium 10 mg [Singulair 10 MG] 10 mg PO DAILY 07/21/21 [History] Zolpidem Tartrate 10 mg [Ambien 10 MG] 10 mg PO DAILY 07/21/21 [History] Hx Tetanus, Diphtheria Vaccination/Date Given: No (unknown) Hx Influenza Vaccination/Date Given: Yes Hx Pneumococcal Vaccination/Date Given: No Immunizations Up to Date: Yes Travel Risk - International Travel Have you traveled outside of the country in past 3 weeks: No - Coronavirus Screening Are you exhibiting any of the following symptoms?: No - Vaccine Status Have you recieved a Covid-19 vaccination: No - Review of Systems Constitutional: No Fever, No Chills Eyes: No Symptoms Ears, Nose, & Throat: No Symptoms Respiratory: No Cough, No Dyspnea Cardiac: No Chest Pain, No Edema, No Syncope Abdominal/Gastrointestinal: No Abdominal Pain, No Nausea, No Vomiting, No Diarrhea Genitourinary Symptoms: No Dysuria Musculoskeletal: No Back Pain, No Neck Pain Skin: Pruritis, Rash Neurological: No Dizziness, No Focal Weakness, No Sensory Changes Psychological: No Symptoms Endocrine: No Symptoms All Other Systems: Reviewed and Negative - Past Medical History Pertinent Past Medical History: Yes Neurological History: No Pertinent History ENT History: No Pertinent History Cardiac History: High Cholesterol Respiratory History: Asthma Endocrine Medical History: Diabetes Type II Musculoskeletal History: Arthritis GI Medical History: GERD History: No Pertinent History Psycho-Social History: Depression Female Reproductive Disorders: Abnormal Uterine Bleeding, Other Other Medical History: HAS SOME O.A. IN BACK AND ALSO IN KNEE. WALKS 3-6 MILES A DAY - Past Surgical History Past Surgical History: Yes Neuro Surgical History: No Pertinent History, Other Cardiac: No Pertinent History Gastrointestinal: Hernia Repair Musculoskeletal: Other Female Surgical History: Dilation & Curettage, Other Other Surgical History: Back surgery 12/2009; thermal ablation - Social History Smoking Status: Smoker, status unknown Exposure to second hand smoke: No Drug Use: none Patient Lives Alone: No Significant Family History: no pertinent family hx - Female History Hx Last Menstrual Period: post Hx Now: No - Nursing Vital Signs Nursing Vital Signs: Initial Vital Signs Temperature 97.0 F 10/14/22 15:53 Pulse Rate 91 H 10/14/22 15:53 Respiratory Rate 18 10/14/22 15:53 Blood Pressure 151/91 10/14/22 15:53 O2 Sat by Pulse Oximetry 97 10/14/22 15:53 Pain Scale Pain Intensity 3 - Physical Exam General Appearance: mild distress, alert Eye Exam: PERRL/EOMI, eyes nml inspection Ears, Nose, Throat Exam: normal ENT inspection, pharynx normal, moist mucous membranes Neck Exam: normal inspection, non-tender, supple, full range of motion Respiratory Exam: normal breath sounds, lungs clear, No respiratory distress Cardiovascular Exam: regular rate/rhythm, normal heart sounds Gastrointestinal/Abdomen Exam: soft, mass, No tenderness Back Exam: normal inspection, normal range of motion, No CVA tenderness, No vertebral tenderness Extremity Exam: normal inspection, normal range of motion Neurologic Exam: alert, 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, cooperative, normal mood/affect, sensation nml, No motor deficits Skin Exam: warm, dry, rash (Rash on the right side of the face on the mandibular area and the lateral aspect of the right arm. The arm rash is just above the elbow.) SpO2 Interpretation: normal SpO2: 98 O2 Delivery: Room Air - Course Nursing assessment & vital signs reviewed: Yes Ordered Tests: Active Orders 24 hr Category Date Time Status IV Insertion STAT Care 10/14/22 16:12 Active Medication Summary Discontinued Medications Generic Name Dose Route Start Last Admin Trade Name Nateq PRN Reason Stop Dose Admin Methylprednisolone Sodium 0 mg 10/14/22 15:58 10/14/22 16:15 Succinate 125 mg/ Sterile IV 10/14/22 15:59 125 mg Water 2 ml STAT ONE Administration Diphenhydramine HCl 50 mg 10/14/22 15:58 10/14/22 16:15 Diphenhydramine Hcl 50 Mg/Ml Vial IV 10/14/22 15:59 50 mg STAT ONE Administration Diphenhydramine HCl Confirm 10/14/22 16:13 Diphenhydramine Hcl 50 Mg/Ml Vial Administered 10/14/22 16:14 Dose 50 mg .ROUTE .STK-MED ONE Methylprednisolone Sodium Succinate Confirm 10/14/22 16:13 Methylprednis Sod Succ 125 Mg/2 Ml Vial Administered 10/14/22 16:14 Dose 125 mg .ROUTE .STK-MED ONE Sterile Water Confirm 10/14/22 16:13 Water For Injection,Sterile 10 Ml Vial Administered 10/14/22 16:14 Dose 10 ml IJ .STK-MED ONE - Progress Progress: improved Medical Desision Making - Risk of complications Low Risk: Low risk of morbidity from additional dx testing or treatment The pt has a mod risk of morbidity or mortality based on: Need for prescription drug management - Departure Departure Disposition: Home Clinical Impression: Contact dermatitis Condition: Stable Critical Care Time: No Referrals: DASH PUENTES NP [Primary Care Provider] - Follow up/PCP as directed Instructions: Contact Dermatitis (DC) Prescriptions: Prednisone 10 mg [Deltasone 10 mg] 10 mg PO TID #12 tablet
== END 2022-10-14 17:01 | disposition home or self-care (01) ==
LOC: ED 15:44
DX: L25.9 Unspecified contact dermatitis, unspecified cause (principal); E11.9 Type 2 diabetes mellitus without complications; E78.5 Hyperlipidemia, unspecified; Z79.84 Long term (current) use of oral hypoglycemic drugs; Z79.52 Long term (current) use of systemic steroids; Z79.899 Other long term (current) drug therapy; Z28.310 Unvaccinated for COVID-19
CPT/HCPCS: 36000; 96374; 96375; 99283; J1200; J2930

== ENCOUNTER 2023-04-26 19:24 | Emergency (ER) | payer BC ==
[2023-04-26 19:29] VITALS: TEMP 97.8
[2023-04-26 19:37] LABS: Absolute Neutrophil Ct (ANC) 5.36 x10^3/uL (1.4-6.9); BASOPHIL % 0.2 % (0.0-0.4); Basophil (Absolute #) 0.02 x10^3/uL (0-0.4); Eosinophil % 1.5 % (0.00-5.0); Eosinophil (Absolute #) 0.13 x10^3/uL (0-0.5); Hematocrit 39.8 % (35-47); Hemoglobin 12.5 g/dL (12.0-16.0); IMMATURE GRAN # 0.03 x10^3u/L (0.00-0.03); IMMATURE GRAN % 0.3 % (0.00-0.4); Lymphocyte (Absolute #) 2.53 x10^3/uL (1.0-4.6); Lymphocytes % 29.5 % (24.0-44.0); Mean Cell Volume 88.6 fL (78-100); Mean Corpuscular Hemoglobin 27.8 pg (26-32); Mean Corpuscular Hgb Concent. 31.4 g/dL (32-36); Mean Platelet Volume 11.5 fL (7.5-11.0); Monocyte (Absolute #) 0.51 x10^3/uL (0.0-1.3); Monocytes % 5.9 % (0.0-12.0); Neutrophil % 62.6 % (36.0-66.0); Platelet Count 270 x10^3/uL (150-450); Red Blood Count 4.49 x10^6/uL (4.1-5.4); Red Cell Distribution Width 13.5 % (11.5-14.0); White Blood Count 8.6 x10^3/uL (4.0-10.5)
[2023-04-26 19:51] LABS: ALBUMIN 4.2 g/dL (3.5-5.0); ALKALINE PHOSPHATASE 71 U/L (38-126); ANION GAP 16.5 MEQ/L (5-15); BLOOD UREA NITROGEN 19 mg/dL (7-17); CHLORIDE 102 mmol/L (98-107); Carbon Dioxide 22 mmol/L (22-30); Creatinine 1 0.69 mg/dL (0.52-1.04); EST GLOMERULAR FILTRATION RATE > 60.0 ML/MIN; Glucose 175 mg/dL (74-106); Potassium 3.3 mmol/L (3.5-5.1); SGOT/AST 25 U/L (14-36); SGPT/ALT 25 U/L (0-35); SODIUM 137 mmol/L (137-145); Total Protein 7.5 g/dL (6.3-8.2)
--- NOTE | 2023-04-26 19:56 | ERPHSYRPT ---
- History of Present Illness Time Seen by Provider: 04/26/23 19:40 Historian: patient Exam Limitations: no limitations Patient Subjective Stated Complaint: chest pain which started today after lunch but has been off and on x2 weeks. Triage Nursing Assessment: pt ambulated into ER without diff, spouse at bedside. Pt c/o midsternal chest pain since 1pm today that radiates to her upper back, which began after eating lunch today. Pt has had chest pain off and on x2 weeks intermittent. Lungs clear, heart tones reg, abd lg soft with active bs x4 quad, nontender. Pt states, "I have been working alot in the yard and wondered if I pulled something". Pt has hx of gerd and states, "It's been alot worse here lately" Physician History: Patient is a 48-year-old female history of diabetes, BMI 41 presents to our ED for evaluation of chest pain that has been intermittent for approximately 2 weeks. Patient states the current bouts of chest pain started after lunch today. Patient states the pain tends to radiate to her upper back. No neck pain. No arm pain. Patient has a history of GERD. Symptoms are mild to mod erate in intensity. No specific worsening improving factors. Patient reports having had a cardiac cath approximately 5 years ago that was completely clean. No coronary artery disease found. No trauma. No fever. No nausea vomiting or diaphoresis. Symptoms are mild to moderate in intensity. No specific worsening or improving factors. Patient voices no other complaints concerns at this time. Portions of this note were created with voice recognition technology. There may be grammatical, spelling, punctuation or sound alike errors Timing/Duration: week(s) (2 weeks) Activities at Onset: none Quality: aching Location: substernal Chest Pain Radiation: back Severity of Pain-Max: moderate Severity of Pain-Current: mild Modifying Factors: Improves With: nothing Associated Symptoms: denies symptoms Prior Chest Pain/Cardiac Workup: cardiac cath Nitro Today/Relief: no nitro taken today Aspirin Treatment Today: no aspirin today Allergies/Adverse Reactions: morphine Adverse Reaction (Mild, Verified 04/26/23 19:43) Vomiting Home Medications: Esomeprazole Magnesium [Nexium] 40 mg PO DAILY 03/06/13 [History] Gemfibrozil [Lopid 600 mg] 600 mg PO BID 03/06/13 [History] Metformin HCl 1000 mg [Glucophage 1000 MG] 1,000 mg PO BID 03/06/13 [History] Fluoxetine HCl [Prozac] 40 mg PO DAILY 04/19/21 [History] Montelukast Sodium 10 mg [Singulair 10 MG] 10 mg PO DAILY 07/21/21 [History] Zolpidem Tartrate 10 mg [Ambien 10 MG] 12.5 mg PO HS 07/21/21 [History] Allopurinol 300 mg [Zyloprim 300 mg] 1 tab PO DAILY 04/26/23 [History] Chlorthalidone 50 mg PO DAILY 04/26/23 [History] Fexofenadine HCl [Lyla Allergy] 180 mg PO DAILY 04/26/23 [History] Phentermine HCl 37.5 mg PO DAILY 04/26/23 [History] Potassium Chloride 10 meq PO DAILY 04/26/23 [History] Sucralfate 1 gm [Carafate 1 GM] 1 tab PO TID 04/26/23 [History] Hx Tetanus, Diphtheria Vaccination/Date Given: Yes Hx Influenza Vaccination/Date Given: Yes Hx Pneumococcal Vaccination/Date Given: No Immunizations Up to Date: Yes Travel Risk - International Travel Have you traveled outside of the country in past 3 weeks: No - Coronavirus Screening Are you exhibiting any of the following symptoms?: No Close contact with a COVID-19 positive Pt in past 14-21 Days: No - Vaccine Status Have you recieved a Covid-19 vaccination: No - Review of Systems Constitutional: No Symptoms, No Fever, No Chills Eyes: No Symptoms Ears, Nose, & Throat: No Symptoms Respiratory: No Symptoms, No Cough, No Dyspnea Cardiac: No Symptoms, No Chest Pain, No Edema, No Syncope Abdominal/Gastrointestinal: No Symptoms, No Abdominal Pain, No Nausea, No Vomiting, No Diarrhea Genitourinary Symptoms: No Symptoms, No Dysuria Musculoskeletal: No Symptoms, No Back Pain, No Neck Pain Skin: No Symptoms, No Rash Neurological: No Symptoms, No Dizziness, No Focal Weakness, No Sensory Changes Psychological: No Symptoms Endocrine: No Symptoms Hematologic/Lymphatic: No Symptoms Immunological/Allergic: No Symptoms All Other Systems: Reviewed and Negative - Past Medical History Pertinent Past Medical History: Yes Neurological History: No Pertinent History ENT History: No Pertinent History Cardiac History: Angina, High Cholesterol Respiratory History: Asthma Endocrine Medical History: Diabetes Type II Musculoskeletal History: Arthritis GI Medical History: GERD History: No Pertinent History Psycho-Social History: Depression Female Reproductive Disorders: Abnormal Uterine Bleeding, Other Other Medical History: HAS SOME O.A. IN BACK AND ALSO IN KNEE. WALKS 3-6 MILES A DAY - Past Surgical History Past Surgical History: Yes Neuro Surgical History: No Pertinent History, Other Cardiac: Cardiac Catheterization Gastrointestinal: Appendectomy, Hernia Repair Genitourinary: No Pertinent History Musculoskeletal: Other Female Surgical History: Dilation & Curettage, Other Other Surgical History: Back surgery 12/2009; thermal ablation - Social History Smoking Status: Former smoker Exposure to second hand smoke: No Drug Use: none Patient Lives Alone: No Significant Family History: no pertinent family hx - Female History Hx Now: No - Nursing Vital Signs Nursing Vital Signs: Initial Vital Signs Pulse Rate 84 04/26/23 19:20 Respiratory Rate 16 04/26/23 19:20 Blood Pressure 131/79 04/26/23 19:20 O2 Sat by Pulse Oximetry 98 04/26/23 19:20 Pain Scale Pain Intensity 0 - Physical Exam General Appearance: no apparent distress, alert Eye Exam: PERRL/EOMI, eyes nml inspection Ears, Nose, Throat Exam: normal ENT inspection, moist mucous membranes Neck Exam: normal inspection, non-tender, supple, full range of motion Respiratory Exam: normal breath sounds, lungs clear, No respiratory distress Cardiovascular Exam: regular rate/rhythm, normal heart sounds Gastrointestinal/Abdomen Exam: soft, No tenderness, No mass Back Exam: normal inspection, No CVA tenderness, No vertebral tenderness Extremity Exam: normal inspection, normal range of motion Neurologic Exam: alert, 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, cooperative, normal mood/affect, sensation nml, No motor deficits Skin Exam: normal color, warm, dry Lymphatic Exam: No adenopathy SpO2 Interpretation: normal SpO2: 97 O2 Delivery: Room Air - Course Nursing assessment & vital signs reviewed: Yes EKG Interpreted by Me: RATE ([id number]), Sinus Rhythm, NORMAL AXIS, NORMAL INTERVALS - Radiology Exams Chest X-ray Interpretation: Interpreted by me (Nonacute chest) - CT Exams Chest CT Interpretation: Tele-radiologist Report (No cobs. Normal CT PE exam. Incidental fatty liver) Ordered Tests: Active Orders 24 hr Category Date Time Status Family Service Assistant STAT Care 04/26/23 19:28 Active EKG-ER Only STAT Care 04/26/23 19:28 Active IV Insertion STAT Care 04/26/23 19:28 Active Pulse Oximetry (ED) STAT Care 04/26/23 19:28 Active CHEST 1 VIEW (PORTABLE) Stat Exams 04/26/23 19:28 Taken CHEST WITH CONTRAST [CT] Stat Exams 04/26/23 20:34 Taken CBC W DIFF Stat Lab 04/26/23 19:35 Completed CMP Stat Lab 04/26/23 19:35 Completed D-DIMER QUANTITATIVE Stat Lab 04/26/23 19:35 Completed NT PRO BNPII Stat Lab 04/26/23 19:35 Completed TROPONIN Q4H Lab 04/26/23 19:35 Completed TROPONIN Q4H Lab 04/26/23 23:01 Completed TROPONIN Q4H Lab 04/27/23 03:30 Ordered Medication Summary Discontinued Medications Generic Name Dose Route Start Last Admin Trade Name Freq PRN Reason Stop Dose Admin Al Hydrox/Mg Hydrox/Simethicone Confirm 04/26/23 20:11 Mag Hydrox/Al Hydrox/Simeth 30 Ml Udcup Administered 04/26/23 20:12 Dose 30 ml .ROUTE .STK-MED ONE Lidocaine HCl Confirm 04/26/23 20:11 Lidocaine Hcl 2% Viscous 15 Ml Udcup Administered 04/26/23 20:12 Dose 15 ml .ROUTE .STK-MED ONE Magnesium Hydroxide 45 ml 04/26/23 20:05 04/26/23 20:15 Mag Hydrx/Alum Hyd/Simeth/Lido 45 Ml Bottle PO 04/26/23 20:06 45 ml STAT ONE Administration Potassium Chloride 40 meq 04/26/23 20:06 04/26/23 20:12 Potassium Chloride Tab 10 Meq Tab PO 04/26/23 20:07 40 meq STAT ONE Administration Potassium Chloride Confirm 04/26/23 20:11 Potassium Chloride Tab 10 Meq Tab Administered 04/26/23 20:12 Dose 40 meq PO .STK-MED ONE Lab/Rad Data: Laboratory Result Diagrams 04/26/23 19:35 04/26/23 19:35 Laboratory Results 04/26/23 04/26/23 04/26/23 Range/Units 23:01 19:35 19:35 WBC (4.0-10.5) x10^3/uL RBC (4.1-5.4) x10^6/uL Hgb (12.0-16.0) g/dL Hct (35-47) % MCV (78-100) fL MCH (26-32) pg MCHC (32-36) g/dL RDW (11.5-14.0) % Plt Count (150-450) x10^3/uL MPV (7.5-11.0) fL Gran % (36.0-66.0) % Immature Gran % (Auto) (0.00-0.4) % Nucleat RBC Rel Count (0.00-0.1) % Eos # (Auto) (0-0.5) x10^3/uL Immature Gran # (Auto) (0.00-0.03) x10^3u/L Absolute Lymphs (auto) (1.0-4.6) x10^3/uL Absolute Monos (auto) (0.0-1.3) x10^3/uL Absolute Nucleated RBC (0.00-0.01) x10^3u/L Lymphocytes % (24.0-44.0) % Monocytes % (0.0-12.0) % Eosinophils % (0.00-5.0) % Basophils % (0.0-0.4) % Absolute Granulocytes (1.4-6.9) x10^3/uL Basophils # (0-0.4) x10^3/uL D-Dimer 0.71 H* (0.0-0.50) mg/L Sodium (137-145) mmol/L Potassium (3.5-5.1) mmol/L Chloride (98-107) mmol/L Carbon Dioxide (22-30) mmol/L Anion Gap (5-15) MEQ/L BUN (7-17) mg/dL Creatinine (0.52-1.04) mg/dL Estimated GFR ML/MIN Glucose (74-106) mg/dL Calcium (8.4-10.2) mg/dL Total Bilirubin (0.2-1.3) mg/dL AST (14-36) U/L ALT (0-35) U/L Alkaline Phosphatase (38-126) U/L Troponin I < 0.012 < 0.012 (0.000-0.034) ng/mL NT-Pro-B Natriuret Pep 51.4 (<300) pg/mL Serum Total Protein (6.3-8.2) g/dL Albumin (3.5-5.0) g/dL 04/26/23 04/26/23 Range/Units 19:35 19:35 WBC 8.6 (4.0-10.5) x10^3/uL RBC 4.49 (4.1-5.4) x10^6/uL Hgb 12.5 (12.0-16.0) g/dL Hct 39.8 (35-47) % MCV 88.6 (78-100) fL MCH 27.8 (26-32) pg MCHC 31.4 L (32-36) g/dL RDW 13.5 (11.5-14.0) % Plt Count 270 (150-450) x10^3/uL MPV 11.5 H (7.5-11.0) fL Gran % 62.6 (36.0-66.0) % Immature Gran % (Auto) 0.3 (0.00-0.4) % Nucleat RBC Rel Count 0.0 (0.00-0.1) % Eos # (Auto) 0.13 (0-0.5) x10^3/uL Immature Gran # (Auto) 0.03 (0.00-0.03) x10^3u/L Absolute Lymphs (auto) 2.53 (1.0-4.6) x10^3/uL Absolute Monos (auto) 0.51 (0.0-1.3) x10^3/uL Absolute Nucleated RBC 0.00 (0.00-0.01) x10^3u/L Lymphocytes % 29.5 (24.0-44.0) % Monocytes % 5.9 (0.0-12.0) % Eosinophils % 1.5 (0.00-5.0) % Basophils % 0.2 (0.0-0.4) % Absolute Granulocytes 5.36 (1.4-6.9) x10^3/uL Basophils # 0.02 (0-0.4) x10^3/uL D-Dimer (0.0-0.50) mg/L Sodium 137 (137-145) mmol/L Potassium 3.3 L (3.5-5.1) mmol/L Chloride 102 (98-107) mmol/L Carbon Dioxide 22 (22-30) mmol/L Anion Gap 16.5 H (5-15) MEQ/L BUN 19 H (7-17) mg/dL Creatinine 0.69 (0.52-1.04) mg/dL Estimated GFR > 60.0 ML/MIN Glucose 175 H (74-106) mg/dL Calcium 9.0 (8.4-10.2) mg/dL Total Bilirubin 0.20 (0.2-1.3) mg/dL AST 25 (14-36) U/L ALT 25 (0-35) U/L Alkaline Phosphatase 71 (38-126) U/L Troponin I (0.000-0.034) ng/mL NT-Pro-B Natriuret Pep (<300) pg/mL Serum Total Protein 7.5 (6.3-8.2) g/dL Albumin 4.2 (3.5-5.0) g/dL - Progress Progress: improved Air Movement: good Progress Note: Patient is a 48-year-old female history of diabetes presents to our ED for evaluation of intermittent chest pain that started approximately 2 weeks ago. Patient had a cardiac cath done about 4 to 5 years ago and states that she had no coronary artery disease. Patient's chest pain does not radiate. No nausea vomiting or diaphoresis. Physical exam something unremarkable. EKG reveals normal sinus rhythm. Chest x-ray shows no acute processes. CBC within normal limits. CMP showed a potassium of 3.3. Patient received oral potassium replacement. D-dimer positive. CTA chest negative for PE. BNP within normal limits. Troponin negative x2. Pain patient received a GI cocktail which improved her symptoms. Patient admits to history of GERD. She is currently on Nexium. It is possible that patient's chest discomfort is due to GERD in light of the negative work-up however acute coronary syndrome cannot be completely excluded. A prescription for Protonix 40 to patient's pharmacy. Patient to discontinue the Nexium. Patient understands the importance of follow-up. Patient agrees to follow-up with her primary care doctor for within 48 hours for reevaluation. Portions of this note were created with voice recognition technology. There may be grammatical, spelling, punctuation or sound alike errors Complexity of problems addressed is moderate acute complicated No critical care time Complex of data reviewed and analyzed is moderate. Test ordered. Test reviewed. Dr. Laureano independently reviewed the EKG and chest x-ray. No acute findings observed. Test ordered test reviewed. Clinical correlation made between the findings and history and physical examination. Risk of complication and or risk morbidity/mortality of patient management is moderate. A prescription for Protonix 40 the patient's pharmacy has patient received some improvement of her symptoms after administration of a GI cocktail. In light of the patient's history of GERD and the fact that her pain started after a meal increases the probability that GERD may in part be contributing to her current symptomology. Patient states her chest pain has completely resolved. Vital stable. Patient asymptomatic. Will discharge home. We discussed the risks and benefits of admission versus going home. Patient is requesting to go home. Patient's heart score is a 3. This confers a relatively low risk of M GARRETT. No social determinants of health present impede follow-up. Portions of this note were created with voice recognition technology. There may be grammatical, spelling, punctuation or sound alike errors 04/27/23 00:30 Blood Culture(s) Obtained: No Antibiotics given: No Counseled pt/family regarding: lab results, diagnosis, need for follow-up, rad results - Departure Departure Disposition: Home Clinical Impression: Chest pain, Hypokalemia Condition: Stable Critical Care Time: No Referrals: DASH PUENTES PUBLIC INTERVIEWER [Primary Care Provider] - Follow up/PCP as directed Instructions: Hypokalemia (DC), Chest Pain (DC) Additional Instructions: Discharge/Care Plan JOSEROZINA WOODS was seen on 04/27/23 in the Emergency Room. The patient was counseled regarding Diagnosis,Lab results, Imaging studies, need for follow up and when to return to the Emergency Room. Prescriptions given: Discharge Note I have spoken with the patient and/or caregivers. I have explained the patient's condition, diagnosis and treatment plan based on the information available to me at this time. I have answered the patient's and/or caregiver's questions and addressed any concerns. The patient and/or caregivers have as good understanding of the patient's diagnosis, condition and treatment plan as can be expected at this point. The vital signs have been stable. The patient's condition is stable and appropriate for discharge from the emergency department. The patient will pursue further outpatient evaluation with the primary care physician or other designated or consulting physician as outlined in the discharge instructions. The patient and/or caregivers are agreeable to this plan of care and follow-up instructions have been explained in detail. The patient and/or caregivers have received these instruction. The patient/and or caregivers are aware that any significant change in condition or worsening of symptoms should prompt an immediate return to this or the closest emergency department or call 911. Prescriptions: PANTOPRAZOLE 40 mg Tablet [Protonix 40MG Tablet] 40 mg PO QAM 14 Days #14 tab
[2023-04-26] MEDS ORDERED: GI COCKTAIL 45 ML (Maalox/Lidocaine) PO ONE (20:05)
[2023-04-26] MEDS ORDERED: Klor Con PO ONE ×2 (20:06→20:11)
[2023-04-26] MEDS ORDERED: XYLOCAINE VISCOUS 2% 15 ML CUP ONE (20:11)
[2023-04-26] MEDS ORDERED: MAALOX ES 30 ML UNIT DOSE ONE (20:11)
[2023-04-26 20:12] LABS: NT PRO BNPII 51.4 pg/mL (<300); TROPONIN < 0.012 ng/mL (0.000-0.034)
[2023-04-27 00:24] VITALS: BP 116/78; PULSE 74; RESP 18
[2023-04-27 00:28] VITALS: O2SAT 97
--- NOTE | 2023-04-27 08:37 | XRAY ---
Indication: Chest pain. Comparison: October 27, 2022 Portable chest again demonstrates normal heart and lungs. Bony thorax intact. No new/acute findings.
--- NOTE | 2023-04-27 08:37 | XRAY ---
Indication: Chest pain. Elevated d-dimer. Pulmonary embolus. Multiple contiguous axial images obtained through the chest using 100 cc Isovue 370 contrast and PE protocol. Comparison: None Adequate opacification of the pulmonary arteries. No pulmonary embolus. Heart not enlarged. Aorta is normal in course and caliber. No pathologic mediastinal/hilar lymphadenopathy. Lungs inflated and clear. Bony thorax intact with minimal degenerative changes throughout spine. Limited upper abdomen demonstrates fatty liver. Impression: Negative pulmonary embolus. No acute cardiopulmonary abnormalities. Incidental fatty liver.
== END 2023-04-27 00:34 | disposition home or self-care (01) ==
LOC: ED 19:24
DX: R07.9 Chest pain, unspecified (principal); E87.6 Hypokalemia; E11.9 Type 2 diabetes mellitus without complications; E78.5 Hyperlipidemia, unspecified; Z79.84 Long term (current) use of oral hypoglycemic drugs; Z79.899 Other long term (current) drug therapy; Z28.310 Unvaccinated for COVID-19
CPT/HCPCS: 36000; 36415; 71045; 71260; 80053; 83880; 84484; 85025; 85379; 93005; 93041; 94760; 99284; A9270-GY

== ENCOUNTER 2023-10-30 14:56 | Emergency (ER) | payer BC ==
[2023-10-30 15:09] VITALS: TEMP 96.6
--- NOTE | 2023-10-30 15:16 | ERPHSYRPT ---
- History of Present Illness Time Seen by Provider: 10/30/23 15:10 Historian: patient, family Exam Limitations: no limitations Patient Subjective Stated Complaint: Pt c/o of left sided flank pain that radiates around to the LLQ for the past week and a half Triage Nursing Assessment: Pt was brought to the ER by her daughter, delisa jauregui, rates pain as 7/10, pulses normal, skin n/w/d, pain to the left flank with palpatation that radiates around to the LLQ, pain began approx 1.5 weeks ago, no difficulty breathing, denies difficulty with urination, doesn't appear to be in any distress Physician History: This is a morbidly obese 48-year-old white female patient of nurse practitioner Abram who presents by private vehicle driven in by her daughter with left flank pain that has radiated into her left lower quadrant. She has had intermittent pain in the last week and a half. She describes the pain as achiness with i ntermittent sharp stabbing pains. Patient has a history of ureterolithiasis in the past. She has had no vomiting but she does have nausea. She currently has no chest pain but she does state that she intermittently has chest pain and has been diagnosed with chronic angina in the past. She has not had any diarrhea symptoms. She denies fever. She denies cough. Patient does have a history of gastroesophageal reflux disease, gout, diabetes, hyperlipidemia, asthma. Patient states that she is allergic to morphine. Patient wants to avoid Dilaudid because it gives her chest pain. Timing/Duration: week(s) (1.5), worse Quality: aching, sharpness Abdominal Pain Onset Location: flank (Left) Pain Radiation: LLQ Modifying Factors: Improves With: nothing Associated Symptoms: nausea, No chest pain, No headache, No shortness of breath, No weakness Previous symptoms: same symptoms as today, no recent treatment Allergies/Adverse Reactions: morphine Adverse Reaction (Mild, Verified 10/30/23 15:09) Vomiting Home Medications: Gemfibrozil [Lopid 600 mg] 600 mg PO BID 03/06/13 [History] Metformin HCl 1000 mg [Glucophage 1000 MG] 1,000 mg PO BID 03/06/13 [History] Fluoxetine HCl [Prozac] 40 mg PO DAILY 04/19/21 [History] Montelukast Sodium 10 mg [Singulair 10 MG] 10 mg PO DAILY 07/21/21 [History] Zolpidem Tartrate 10 mg [Ambien 10 MG] 12.5 mg PO HS 07/21/21 [History] Allopurinol 300 mg [Zyloprim 300 mg] 300 mg PO DAILY 04/26/23 [History] Chlorthalidone 50 mg PO DAILY 04/26/23 [History] Fexofenadine HCl [Lyla Allergy] 180 mg PO DAILY 04/26/23 [History] Phentermine HCl 37.5 mg PO DAILY 04/26/23 [History] Potassium Chloride 10 meq PO DAILY 04/26/23 [History] Sucralfate 1 gm [Carafate 1 GM] 1 tab PO BID 04/26/23 [History] Dapagliflozin Propanediol [Farxiga] 10 mg PO DAILY 10/30/23 [History] Gabapentin [Gabapentin ER] 600 mg PO TID 10/30/23 [History] Insulin Aspart [Novolog] 15 unit SQ TIDWM 10/30/23 [History] Insulin Glargine,Hum.rec.anlog [Lantus] 60 unit SQ DAILY 10/30/23 [History] Tirzepatide [Mounjaro] 5 mg SQ WEEKLY 10/30/23 [History] Hx Tetanus, Diphtheria Vaccination/Date Given: Yes Hx Influenza Vaccination/Date Given: Yes Hx Pneumococcal Vaccination/Date Given: No Travel Risk - International Travel Have you traveled outside of the country in past 3 weeks: No - Emerging Infectious Disease Are you exhibiting symptoms associated with any current EIDs: No - Review of Systems Constitutional: No Symptoms Eyes: No Symptoms Ears, Nose, & Throat: No Symptoms Respiratory: No Symptoms Cardiac: No Symptoms Abdominal/Gastrointestinal: Abdominal Pain (Left lower quadrant), Nausea, No Vomiting, No Diarrhea, No Constipation Genitourinary Symptoms: Flank Pain (Left flank) Musculoskeletal: No Symptoms Skin: No Symptoms Neurological: No Symptoms Psychological: No Symptoms Endocrine: No Symptoms Hematologic/Lymphatic: No Symptoms Immunological/Allergic: No Symptoms All Other Systems: Reviewed and Negative - Past Medical History Pertinent Past Medical History: Yes Neurological History: No Pertinent History ENT History: No Pertinent History Cardiac History: Angina, High Cholesterol Respiratory History: Asthma Endocrine Medical History: Diabetes Type II Musculoskeletal History: Arthritis GI Medical History: GERD History: No Pertinent History Psycho-Social History: Depression Female Reproductive Disorders: Abnormal Uterine Bleeding, Other Other Medical History: HAS SOME O.A. IN BACK AND ALSO IN KNEE. WALKS 3-6 MILES A DAY - Past Surgical History Past Surgical History: Yes Neuro Surgical History: No Pertinent History, Other Cardiac: Cardiac Catheterization Gastrointestinal: Appendectomy, Hernia Repair Genitourinary: No Pertinent History Musculoskeletal: Other Female Surgical History: Dilation & Curettage, Other Other Surgical History: Back surgery 12/2009; thermal ablation Significant Family History: no pertinent family hx - Female History Hx Now: No - Social History Smoking Status: Former smoker Exposure to second hand smoke: No Drug Use: none Patient Lives Alone: No - Nursing Vital Signs Nursing Vital Signs: Initial Vital Signs Temperature 96.6 F 10/30/23 15:00 Pulse Rate 102 H 10/30/23 15:00 Blood Pressure 118/79 10/30/23 15:00 O2 Sat by Pulse Oximetry 99 10/30/23 15:00 Pain Scale Pain Intensity 7 - Physical Exam General Appearance: no apparent distress, alert, anxiety, obese Eye Exam: PERRL/EOMI, eyes nml inspection Ears, Nose, Throat Exam: normal ENT inspection, moist mucous membranes Neck Exam: normal inspection, non-tender, supple, full range of motion Respiratory Exam: normal breath sounds, lungs clear, airway intact, No chest tenderness, No respiratory distress Cardiovascular Exam: regular rate/rhythm, normal heart sounds, normal peripheral pulses Gastrointestinal/Abdomen Exam: soft, normal bowel sounds, tenderness (Lower quadrant), guarding (Mild pain left lower quadrant to palpation), No pulsatile mass, No rebound Pelvic Exam: not done Rectal Exam: not done Back Exam: normal inspection, normal range of motion, CVA tenderness, No vertebral tenderness (Left flank) Extremity Exam: normal inspection, normal range of motion, pelvis stable Neurologic Exam: alert, 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, cooperative, steel placer II-XII nml as tested, normal mood/affect, nml cerebellar function, nml station & gait, sensation nml Skin Exam: normal color, warm, dry Lymphatic Exam: No adenopathy SpO2 Interpretation: normal SpO2: 99 O2 Delivery: Room Air - Course Nursing assessment & vital signs reviewed: Yes EKG Interpreted by Me: RATE (100), Sinus Tach, NORMAL AXIS, NORMAL INTERVALS, NORMAL QRS, NORMAL ST-T, Other (No acute ischemic changes on today's twelve-lead EKG. No changes when compared to twelve-lead EKG dated 04/26/2023) Ordered Tests: Active Orders 24 hr Category Date Time Status EKG-ER Only STAT Care 10/30/23 15:16 Active IV Insertion STAT Care 10/30/23 15:16 Active ABDOMEN AND PELVIS W/0 CONTRAS [CT] Stat Exams 10/30/23 15:17 Completed AMYLASE Stat Lab 10/30/23 15:40 Completed CBC W DIFF Stat Lab 10/30/23 15:40 Completed LIPASE Stat Lab 10/30/23 15:40 Completed Lactic Acid Stat Lab 10/30/23 15:20 Completed TROPONIN Q4H Lab 10/30/23 19:30 Ordered TROPONIN Q4H Lab 10/30/23 23:30 Ordered UA W/RFX UR CULTURE Stat Lab 10/30/23 15:19 Completed Medication Summary Discontinued Medications Generic Name Dose Route Start Last Admin Trade Name Freq PRN Reason Stop Dose Admin Sodium Chloride 1,000 mls @ 999 mls/hr 10/30/23 15:16 10/30/23 16:26 Sodium Chloride 0.9% 1000 Ml IV 10/30/23 16:16 Infused .Q1H1M STA Infusion Sodium Chloride Confirm 10/30/23 15:23 Sodium Chloride 0.9% 1000 Ml Administered 10/30/23 15:24 Dose 1,000 mls @ ud .ROUTE .STK-MED ONE Ketorolac Tromethamine 30 mg 10/30/23 15:18 10/30/23 15:26 Ketorolac Tromethamine 30 Mg/Ml Inj IV 10/30/23 15:19 30 mg STAT ONE Administration Ketorolac Tromethamine Confirm 10/30/23 15:22 Ketorolac Tromethamine 30 Mg/Ml Inj Administered 10/30/23 15:23 Dose 30 mg .ROUTE .STK-MED ONE Meperidine HCl 25 mg 10/30/23 15:18 10/30/23 15:25 Meperidine Hcl 25 Mg Syringe IV 10/30/23 15:19 Not Given STAT ONE Meperidine HCl 25 mg 10/30/23 15:22 10/30/23 15:26 Meperidine Hcl 50 Mg/Ml Carp IV 10/30/23 15:23 25 mg STAT ONE Administration Meperidine HCl Confirm 10/30/23 15:22 Meperidine Hcl 50 Mg/Ml Carp Administered 10/30/23 15:23 Dose 50 mg .ROUTE .STK-MED ONE Meperidine HCl 25 mg 10/30/23 17:07 10/30/23 17:14 Meperidine Hcl 50 Mg/Ml Carp IV 10/30/23 17:08 25 mg STAT ONE Administration Meperidine HCl Confirm 10/30/23 17:12 Meperidine Hcl 50 Mg/Ml Carp Administered 10/30/23 17:13 Dose 50 mg .ROUTE .STK-MED ONE Ondansetron HCl 4 mg 10/30/23 15:16 10/30/23 15:26 Ondansetron Hcl 4 Mg/2 Ml Vial IV 10/30/23 15:17 4 mg STAT ONE Administration Ondansetron HCl Confirm 10/30/23 15:22 Ondansetron Hcl 4 Mg/2 Ml Vial Administered 10/30/23 15:23 Dose 4 mg .ROUTE .K-[facility] ONE Lab/Rad Data: Laboratory Result Diagrams 10/30/23 15:40 10/30/23 15:40 Laboratory Results 10/30/23 10/30/23 10/30/23 Range/Units 15:40 15:40 15:40 WBC 9.2 (4.0-10.5) x10^3/uL RBC 5.26 (4.1-5.4) x10^6/uL Hgb 14.5 (12.0-16.0) g/dL Hct 45.7 (35-47) % MCV 86.9 (78-100) fL MCH 27.6 (26-32) pg MCHC 31.7 L (32-36) g/dL RDW 14.1 H (11.5-14.0) % Plt Count 263 (150-450) x10^3/uL MPV 11.7 H (7.5-11.0) fL Gran % 88.1 H (36.0-66.0) % Immature Gran % (Auto) 0.4 (0.00-0.4) % Nucleat RBC Rel Count 0.0 (0.00-0.1) % Eos # (Auto) 0.14 (0-0.5) x10^3/uL Immature Gran # (Auto) 0.04 H (0.00-0.03) x10^3u/L Absolute Lymphs (auto) 0.44 L (1.0-4.6) x10^3/uL Absolute Monos (auto) 0.45 (0.0-1.3) x10^3/uL Absolute Nucleated RBC 0.00 (0.00-0.01) x10^3u/L Lymphocytes % 4.8 L (24.0-44.0) % Monocytes % 4.9 (0.0-12.0) % Eosinophils % 1.5 (0.00-5.0) % Basophils % 0.3 (0.0-0.4) % Absolute Granulocytes 8.14 H (1.4-6.9) x10^3/uL Basophils # 0.03 (0-0.4) x10^3/uL Sodium Direct 136 L (138-146) mmol/L Potassium 3.5 (3.5-4.9) mmol/L Chloride 97 L (98-109) mmol/L Carbon Dioxide 24 (24-29) mmol/L Venous BUN 25 (8-26) mg/dL Creatinine 0.7 (0.6-1.3) mg/dL Glucose 181 H (70-105) mg/dL Lactic Acid (0.4-2.0) Ionized Calcium 1.07 L (1.12-1.32) mmol/L Troponin 0.01 (0.00-0.03) ng/mL Amylase 64 (30-110) U/L Lipase 95 (23-300) U/L Urine Color (Yellow) Urine Appearance (Clear) Urine pH (4.6-8.0) Ur Specific [place] (1.005-1.030) Urine Protein (Negative) Urine Glucose (UA) (Negative) mg/dL Urine Ketones (Negative) Urine Blood (Negative) Urine Nitrite (Negative) Urine Bilirubin (Negative) Urine Urobilinogen (0.2) mg/dL Ur Leukocyte Esterase (Negative) U Hyaline Cast (Auto) (0-2) /LPF Urine Microscopic RBC (0-5) /HPF Urine Microscopic WBC (0-5) /HPF Ur Epithelial Cells (None Seen) /HPF Urine Bacteria (None Seen) /HPF Urine Culture Reflexed (NO) Slides for Path Review YES 10/30/23 10/30/23 Range/Units 15:20 15:19 WBC (4.0-10.5) x10^3/uL RBC (4.1-5.4) x10^6/uL Hgb (12.0-16.0) g/dL Hct (35-47) % MCV (78-100) fL MCH (26-32) pg MCHC (32-36) g/dL RDW (11.5-14.0) % Plt Count (150-450) x10^3/uL MPV (7.5-11.0) fL Gran % (36.0-66.0) % Immature Gran % (Auto) (0.00-0.4) % Nucleat RBC Rel Count (0.00-0.1) % Eos # (Auto) (0-0.5) x10^3/uL Immature Gran # (Auto) (0.00-0.03) x10^3u/L Absolute Lymphs (auto) (1.0-4.6) x10^3/uL Absolute Monos (auto) (0.0-1.3) x10^3/uL Absolute Nucleated RBC (0.00-0.01) x10^3u/L Lymphocytes % (24.0-44.0) % Monocytes % (0.0-12.0) % Eosinophils % (0.00-5.0) % Basophils % (0.0-0.4) % Absolute Granulocytes (1.4-6.9) x10^3/uL Basophils # (0-0.4) x10^3/uL Sodium Direct (138-146) mmol/L Potassium (3.5-4.9) mmol/L Chloride (98-109) mmol/L Carbon Dioxide (24-29) mmol/L Venous BUN (8-26) mg/dL Creatinine (0.6-1.3) mg/dL Glucose (70-105) mg/dL Lactic Acid 2.1 H (0.4-2.0) Ionized Calcium (1.12-1.32) mmol/L Troponin (0.00-0.03) ng/mL Amylase (30-110) U/L Lipase (23-300) U/L Urine Color Yellow (Yellow) Urine Appearance Clear (Clear) Urine pH 5.5 (4.6-8.0) Ur Specific [place] >=1.030 A (1.005-1.030) Urine Protein Negative (Negative) Urine Glucose (UA) >=1000 A (Negative) mg/dL Urine Ketones Negative (Negative) Urine Blood Negative (Negative) Urine Nitrite Negative (Negative) Urine Bilirubin Negative (Negative) Urine Urobilinogen 0.2 (0.2) mg/dL Ur Leukocyte Esterase Negative (Negative) U Hyaline Cast (Auto) NONE SEEN (0-2) /LPF Urine Microscopic RBC 0-2 (0-5) /HPF Urine Microscopic WBC 3-5 (0-5) /HPF Ur Epithelial Cells Rare (None Seen) /HPF Urine Bacteria None Seen (None Seen) /HPF Urine Culture Reflexed NO (NO) Slides for Path Review - Progress Progress: improved, pain not gone completely Progress Note: 10/30/23 15:27 This patient's medical issue is 1 of moderate complexity. The level of complexity in the workup performed is based on review of the patient's past medical history, review of the patient's medication list, review the patient drug allergy list, history present illness and physical findings on examination. The workup in this patient includes placement of intravenous line, infusion of normal saline solution, infusion of Zofran 4 mg, infusion of Demerol 25 mg, infusion of 30 mg intravenous Toradol, CBC, CMP, amylase, lipase, lactic acid level, urinalysis and CT scan of the abdomen pelvis without contrast. In addition, we we will order troponin and a twelve-lead EKG. 10/30/23 17:09 CT scan of the abdomen pelvis without contrast was interpreted by the radiologist and I reviewed the impression. Impression states abnormal distention of gallbladder and this postprandial patient. There is mild diffuse fecal stasis. No ureterolithiasis present. Osseous structures are intact with mild degenerative changes. 10/30/23 17:09 I interpreted the laboratory data results that have returned. The amylase and lipase are pending. At this point, there are no laboratory data results that suggest an acute or emergent intra-abdominal or intrapelvic process. 10/30/23 18:17 The amylase and lipase levels are normal. Counseled pt/family regarding: lab results, diagnosis, need for follow-up, rad results Medical Desision Making - Independent Historian Additional History obtained from: Spouse - Diagnostic Testing Diagnostic test were ordered, analyzed, and reviewed by me: Yes Radiological Interpretation: Reviewed by me, Teleradiologist Report - Risk of complications Low Risk: Low risk of morbidity from additional dx testing or treatment - Departure Departure Disposition: Home Clinical Impression: Left flank pain, Left lower quadrant pain Condition: Stable Critical Care Time: No Referrals: [facility] [employer] [Primary Care Provider] - Follow up/PCP as directed Additional Instructions: Take all your medications as prescribed. Call your primary care provider tomorrow, 10/31/2023, to make arrangements for follow-up appointment in the next 3 to 5 days.
[2023-10-30] MEDS ORDERED: DEMEROL 50 MG ONE ×2 (15:22→17:12)
[2023-10-30] MEDS ORDERED: TORAdol 30 mg Injection ONE (15:22)
[2023-10-30] MEDS ORDERED: Zofran 4 MG/2 ML VIAL ONE (15:22)
[2023-10-30] MEDS ORDERED: Sodium Chloride 0.9% 1000 ML 1,000 ML ONE (15:23)
[2023-10-30] MEDS: DEMEROL 25MG SYRINGE IV ONE (15:25)
[2023-10-30] MEDS: Sodium Chloride 0.9% 1000 ML 1,000 ML IV STA (15:25)
[2023-10-30] MEDS: Zofran 4 MG/2 ML VIAL IV ONE (15:26)
[2023-10-30] MEDS: DEMEROL 50 MG IV ONE ×2 (15:26→17:14)
[2023-10-30] MEDS: TORAdol 30 mg Injection IV ONE (15:26)
[2023-10-30 15:41] LABS: Absolute Neutrophil Ct (ANC) 8.14 x10^3/uL (1.4-6.9); BASOPHIL % 0.3 % (0.0-0.4); Basophil (Absolute #) 0.03 x10^3/uL (0-0.4); Eosinophil % 1.5 % (0.00-5.0); Eosinophil (Absolute #) 0.14 x10^3/uL (0-0.5); Hematocrit 45.7 % (35-47); Hemoglobin 14.5 g/dL (12.0-16.0); IMMATURE GRAN # 0.04 x10^3u/L (0.00-0.03); IMMATURE GRAN % 0.4 % (0.00-0.4); Lymphocyte (Absolute #) 0.44 x10^3/uL (1.0-4.6); Lymphocytes % 4.8 % (24.0-44.0); Mean Cell Volume 86.9 fL (78-100); Mean Corpuscular Hemoglobin 27.6 pg (26-32); Mean Corpuscular Hgb Concent. 31.7 g/dL (32-36); Mean Platelet Volume 11.7 fL (7.5-11.0); Monocyte (Absolute #) 0.45 x10^3/uL (0.0-1.3); Monocytes % 4.9 % (0.0-12.0); Neutrophil % 88.1 % (36.0-66.0); Platelet Count 263 x10^3/uL (150-450); Red Blood Count 5.26 x10^6/uL (4.1-5.4); Red Cell Distribution Width 14.1 % (11.5-14.0); White Blood Count 9.2 x10^3/uL (4.0-10.5)
[2023-10-30 15:47] LABS: Appearance Clear (Clear); Bacteria None Seen /HPF (None Seen); Bilirubin Negative (Negative); Blood Negative (Negative); Epithelial Cells Rare /HPF (None Seen); Glucose, Urine >=1000 mg/dL (Negative); Hyaline Casts NONE SEEN /LPF (0-2); Ketones Negative (Negative); Leukocyte Esterase Negative (Negative); Nitrite Negative (Negative); Ph 5.5 (4.6-8.0); Protein,Urine Dip Negative (Negative); RBC 0-2 /HPF (0-5); Specific Gravity >=1.030 (1.005-1.030); Urobilinogen 0.2 mg/dL (0.2)
[2023-10-30 15:57] LABS: ISTAT K 3.5 mmol/L (3.5-4.9); ISTAT iCA 1.07 mmol/L (1.12-1.32)
[2023-10-30 15:58] LABS: ISTAT CREA 0.7 mg/dL (0.6-1.3)
[2023-10-30 16:03] LABS: ADD URINE CULTURE? NO (NO)
--- NOTE | 2023-10-30 16:33 | XRAY ---
Indication: Left lower quadrant pain. Multiple contiguous axial images obtained through abdomen and pelvis without contrast. Comparison: July 18, 2023 Lung bases remain clear. Heart not enlarged. Stomach is now distended with food/fluid. Abnormal distended gallbladder in this postprandial patient. Noncontrasted stomach and bowel loops appear nonobstructed again with appendectomy. There is again mild diffuse scattered colonic fecal debris throughout. Again 22.3 cm fatty hepatomegaly, 15 cm splenomegaly, and 1.2 cm nonobstructing left renal calculus. No free fluid/air. Remaining liver, gallbladder, pancreas, spleen, adrenal glands, kidneys, ureters, bladder, and uterus are unremarkable for noncontrast exam. Again minimal aortoiliac calcifications without AAA. Osseous structures intact again with mild degenerative changes throughout the spine. Impression: 1. Abnormal distended gallbladder in this postprandial patient. Sonogram may yield further information. 2. Again mild diffuse fecal stasis without obstruction. 3. Chronic findings including nonobstructing left renal calculus, fatty hepatomegaly, splenomegaly, arteriosclerotic disease, and chronic bony findings.
[2023-10-30 16:35] VITALS: PULSE 96; RESP 16
[2023-10-30 17:11] LABS: Slide Review 1 YES
[2023-10-30 18:12] VITALS: BP 108/72
[2023-10-30 18:18] VITALS: O2SAT 99
== END 2023-10-30 18:32 | disposition home or self-care (01) ==
LOC: ED 14:56
DX: R10.32 Left lower quadrant pain (principal); R10.9 Unspecified abdominal pain; R11.0 Nausea; E11.9 Type 2 diabetes mellitus without complications; E78.5 Hyperlipidemia, unspecified; Z79.84 Long term (current) use of oral hypoglycemic drugs; Z79.4 Long term (current) use of insulin; Z79.85 Long-term (current) use of injectable non-insulin antidiabetic drugs; Z79.899 Other long term (current) drug therapy
CPT/HCPCS: 36000; 36415; 74176; 80047; 81001; 82150; 83605; 83690; 84484; 85025; 93005; 96374; 96375; 96376; 99284; J1885; J2175; J2405

== ENCOUNTER 2024-05-28 06:28 | Day surgery (SDC) | payer BC ==
[2024-05-28] MEDS ORDERED: TYLENOL EXTRA STRENGTH 500 MG ONE (07:19)
[2024-05-28] MEDS ORDERED: celeBREX 100 MG ONE (07:19)
[2024-05-28] MEDS ORDERED: CEFAZOLIN 2 GM/100 ML NaCl 2 GM/100 ML IVPB IV ONE (07:19)
[2024-05-28] MEDS ORDERED: Lactated Ringers 1,000 ML IV ONE (07:19)
[2024-05-28 07:23] VITALS: RESP 18; TEMP 96.3
[2024-05-28] MEDS: CEFAZOLIN 2 GM/100 ML NaCl 2 GM/100 ML IVPB IV SCH (07:24)
[2024-05-28] MEDS: Lactated Ringers 1,000 ML IV SCH (07:24)
[2024-05-28] MEDS: TYLENOL EXTRA STRENGTH 500 MG PO STA (07:24)
[2024-05-28] MEDS: celeBREX 100 MG PO ONE (07:25)
[2024-05-28 07:42] LABS: Hematocrit 37.8 % (34.1-44.9); Hemoglobin 12.2 g/dL (11.2-15.7); Mean Corpuscular Hemoglobin 27.1 pg (25.6-32.2); Mean Corpuscular Hgb Concent. 32.3 g/dL (32.2-35.5); Mean Platelet Volume 11.5 fL (9.4-12.3); Platelet Count 246 x10^3/uL (182-369); Red Cell Distribution Width 14.6 % (11.7-14.4); White Blood Count 7.1 x10^3/uL (3.98-10.04)
[2024-05-28 07:52] LABS: ALBUMIN 4.1 g/dL (3.5-5.0); ANION GAP 13.2 MEQ/L (5-15); BILIRUBIN,TOTAL 0.4 mg/dL (0.2-1.3); Creatinine 1 0.64 mg/dL (0.52-1.04); EST GLOMERULAR FILTRATION RATE 107.6 ML/MIN; Potassium 3.5 mmol/L (3.5-5.1); Total Protein 7.5 g/dL (6.3-8.2)
[2024-05-28] MEDS ORDERED: Marcaine Mpf 0.5% Vial 30 Ml ONE (09:57)
[2024-05-28] MEDS ORDERED: XYLOCAINE 1% HCL 20 ML MDV ONE (09:57)
[2024-05-28] MEDS ORDERED: SUBLIMAZE 100 MCG/2 ML ONE ×3 (11:02→15:58)
[2024-05-28] MEDS ORDERED: ROCURONIUM BROMIDE IV ONE ×3 (11:02→14:25)
[2024-05-28] MEDS ORDERED: DIPRIVAN 200 MG/20 ML IV ONE (11:02)
[2024-05-28] MEDS ORDERED: Versed 2 MG/2 ML Injection ONE (11:02)
[2024-05-28] MEDS ORDERED: Zofran 4 MG/2 ML VIAL ONE (13:02)
[2024-05-28] MEDS ORDERED: BRIDION 200MG/2ML IV ONE (14:27)
--- NOTE | 2024-05-28 14:42 | XRAY ---
Indication: Right 1st MTP joint arthrodesis, 2nd-5th toe hammertoe correction, and 2nd/3rd metatarsal Nighat osteotomies. Intraoperative fluoroscopy provided for 2 minute 27 seconds. 30 digital spot images submitted for interpretation ultimately demonstrates 1st MTP arthrodesis, 2nd-4th toe arthrodesis, and 2nd/3rd metatarsal Nighat osteotomies all with intact hardware. Correlate with intraoperative findings/report.
[2024-05-28] MEDS ORDERED: TORAdol 30 mg Injection ONE (15:23)
[2024-05-28] MEDS ORDERED: ALBUTEROL/Proair Hfa MDI IH ONE (15:39)
[2024-05-28] MEDS ORDERED: Hydromorphone 1 mg/ml Injection ONE (15:59)
--- NOTE | 2024-05-28 16:36 | XRAY ---
Two minutes and 27 seconds of fluoroscopy was used in surgery for a right 1st MTP joint arthrodesis, 2nd-5th toe hammertoe correction, and 2nd/3rd metatarsal Nighat osteotomies.
[2024-05-28 17:09] VITALS: BP 121/62; PULSE 68; O2SAT 94
--- NOTE | 2024-05-31 08:27 | OP ---
SURGERY DATE/TIME: 05/28/2024 2780-9530 PREOPERATIVE DIAGNOSES: 1) Right foot pain. 2) Retained hardware, right foot. 3) Osteoarthritis, 1st metatarsophalangeal joint. 4) Hammertoe digits 2, 3, 4 and 5. 5) Plantar plate injury with dislocation of metatarsophalangeal joint digits 2 and 3. 6) Metatarsal deformity, metatarsals 2 and 3. POSTOPERATIVE DIAGNOSES: 1) Right foot pain. 2) Retained hardware, right foot. 3) Osteoarthritis, 1st metatarsophalangeal joint. 4) Hammertoe digits 2, 3, 4 and 5. 5) Plantar plate injury with dislocation of metatarsophalangeal joint digits 2 and 3. 6) Metatarsal deformity metatarsals, 2 and 3. 7) Soft tissue mass. PROCEDURES: 1) Removal of hardware. 2) First metatarsophalangeal joint arthrodesis. 3) Nighat osteotomy, metatarsals 2 and 3. 4) Plantar plate repair of metatarsophalangeal joints 2 and 3. 5) Hammertoe correction, digits 2, 3, 4 and 5. 6) Soft tissue mass excision. SURGEON: Meño Null DPM. SPORTS ATTORNEY: MARISOL Lew. ANESTHESIA: General plus a postoperative ankle block. See injectables for details. HEMOSTASIS: Ankle tourniquet set to 250 mmHg for a total of 120 total tourniquet minutes. ESTIMATED BLOOD LOSS: Approximately 150 mL. MATERIALS: 4-0 Monocryl, 4-0 nylon; Meghan ALPS 0-degree 1st metatarsophalangeal joint plate with a 4.0 x 40 VPC screw, interfragmentary; two 2.0 x 14 partially-threaded headed screws; one 2.5 x 40, one 2.5 x 38 and one 2.5 x 28 VPC screws; and back sprayed for plantar plate repairs. INJECTABLES: 30 mL of a 1:1 mixture of 1% lidocaine plain and 0.5% bupivacaine plain injected in an ankle block-type fashion. INDICATIONS FOR PROCEDURE: The patient is a very pleasant 48-year-old female, very well-known to my service for primarily a plantar plate tear and a 3rd metatarsophalangeal joint dislocation secondary to suspected inflammatory arthritis, likely rheumatoid. As a result, patient has had significant amount of pain to the right lower extremity and has been getting injections for a significant amount of time. Patient has had surgical intervention to the right foot in the past for a bunion deformity, which has resulted in chronic pain and need for revision of that surgery. As a result, she has developed some osteoarthritis to the 1st metatarsophalangeal joint and has hypermobility, which has led to chronic inner load of the metatarsophalangeal joints to the lesser metatarsal heads. As a result, patient has been consented for surgery, making sure she understands all the risks, complications, and benefits of surgical intervention at this time but not limited to, infection, hematoma, seroma, possibility of delayed wound healing, non-wound healing, possibility of failure of surgical intervention, continued pain, possible irritating hardware and need for further surgical intervention. No guarantees were provided as to the outcome of surgical intervention; however, the goal of the procedure is to eliminate pain. This is not a cosmetic procedure; however, this is the second goal of the procedure, as well as to provide for optimal biomechanics following the procedure but primarily to eliminate pain. Patient has had plenty of time to ask questions. They were answered to her apparent satisfaction. From that standpoint, we have decided to proceed. DESCRIPTION OF PROCEDURE AND FINDINGS: The patient was brought into the operating room and placed on the operating room table in the supine position. At this time, general anesthesia was administered until the patient was adequately sedated. Once the patient was adequately sedated, a well-padded ankle tourniquet was applied to the patient's right ankle. The right foot was prepped and draped in the typical sterile fashion and lowered onto the surgical field. At this time, under fluoroscopic guidance, a linear incision was made, entering the dorsal aspect of the 1st metatarsophalangeal joint, carefully dissected down to the level of the metatarsophalangeal joint, avoiding any neurovascular structures along the way. The extensor hallucis longus tendon was identified with significant amounts of scar tissue. At this time, a soft tissue mass was encountered at the level of the 1st metatarsal which did seem to be interosseous to some extent. From that standpoint, decision was made to take the soft tissue mass, excised this out. This was handed off the field for pathological assessment. Following this, the extensor hallucis longus was retracted laterally and the exposure of the metatarsophalangeal joint was encountered. Hardware at the base of the proximal phalanx was removed, utilizing an osteotome and mallet, as well as a Cla[place]on, which was utilized to help remove the hardware from the site. Once this was performed, an attempt was made to remove the hardware of the 1st metatarsal; however, this was unable to be retrieved secondary to bony growth to the head of the screw. From that standpoint, decision was made to leave this in. From that point, cup and cone reamers were utilized to remove the devitalized cartilage. Once this was removed, copious amounts of sterile saline were utilized to flush the surgical site. A 2.0 mm drill was then utilized to fenestrate the head to allow for vascular ingrowth of bone fragment. Once the position was deemed to be ideal an [facility] 0-degree 1st metatarsophalangeal joint plate was pinned in the optimum position. At the same time, the K-wire was introduced from distal medial into proximal lateral orientation and this was to be used for our interfragmentary compression, as well as eccentric compression through the metatarsophalangeal joint. From that standpoint, the combination of locking and nonlocking screws were utilized to fixate the plate to the distal aspect. The eccentric screw and interfragmentary screw were thrown at the exact same time so as to regulate compression at these 2 sites. Interfragmentary compression gave the majority of the compression through the site and then the remaining compression was provided to the centric hole on the plate. Once this was performed, the remainder of the holes were filled with a combination of locking and nonlocking screws. Following this, attention was directed to the 2nd metatarsophalangeal joint where under fluoroscopic guidance, incision was made, carrying this down to the level of the bone metatarsophalangeal joint. Once this was performed, an exposure of the metatarsophalangeal joint was encountered. It is of note that the extensor digitorum longus tendon for the 2nd and 3rd tarsometatarsal phalanges were absent and the tenotomy was performed to this site. Once the metatarsal head was encountered, digit was plantarflexed and an 18 mm sagittal saw was utilized to cut the metatarsal head 2 mm from the top of the dorsal aspects of the metatarsal head along the parallel access of the weightbearing surface and shifting the metatarsal head back. Once pinned in appropriate position, the dorsiflexion contracture of the 2nd and 3rd digits were reduced significantly. This was pinned, it was a 2.0 x 14 mm partially-threaded head screw. The 2nd and the 3rd metatarsal were performed in the same fashion. Sequentially, the overhang of the metatarsophalangeal joint was then resected and range of motion was assessed. The plantar plate was then exposed. Decision was made to go to the plantar aspect of the foot to proceed with the plantar plate repair and augmentation with internal brace. From that standpoint, K-wires were introduced just medial and lateral to the Nighat osteotomy site fixation. Once identified, a 2 mm drill hole was then carried through the bone, making sure not to take it to the cartilaginous surface. A MaxBraid with 2 Marquise needles was then passed through the metatarsal head to the plantar aspect of the foot via open incision. Once the plantar plate was then repaired, this was performed to the same K-wires were then utilized at the base of the proximal phalanx and passed through the plantar aspect of the foot. A Hewson was then utilized to pass this through and capture the limb of the thread that passed through the metatarsal head, pulling this through to the dorsal aspect of the proximal phalanx. This was then held in a proximal position. Tension was held while the deformity was corrected and this was tied in this position obtaining excellent improvement of the overall position of the digit. From that standpoint, this procedure was performed to the 2nd and 3rd metatarsal heads, performing the plantar plate repair component of the surgical intervention. Following this, digits 2, 3, and 4 had the same procedure performed where a horizontal transverse incision was made over the proximal interphalangeal joint. The proximal phalangeal head and the base of the middle phalanx was resected out. Once this was performed, a K-wire was then integrated through the distal tip of the toe and then retrograded down to the base of the proximal phalanx, making sure to get adequate intramedullary fixation. Once this was performed, measurement was taken and a 2.5 x 40 screw was utilized over the second digit, a 2.5 x 38 screw was utilized for the third digit, and a 2.5 x 28 mm VPC screw was utilized for the 4th digit, gaining excellent reduction of the contractures of digits 2, 3 and 4. The 5th digit a derotational arthroplasty was performed by performing a wedge skin incision oriented in a distal medial to proximal lateral orientation. Once the joint was resected utilizing the 18 mm sagittal saw, the skin was utilized to collapse the skin, dorsiflexing the toe and rotating it into the more rectus position. From that standpoint, copious amounts of sterile saline were utilized to flush the surgical site. A 4-0 Monocryl was utilized to coapt the subcutaneous skin edges. A 4-0 nylon was then utilized in a horizontal mattress and a simple interrupted-type fashion to coapt the skin edges. Following this, a dressing consisting of Betadine, Adaptic, 4 x 4, Kerlix, ABD and Reid was applied to the patient's right lower extremity. The patient was then returned to the anesthesia and returned to the postoperative anesthesia care unit with vital signs stable and vascular status intact. The patient handled the anesthesia, as well as the procedure, without significant complication. Postoperative orders as indicated in the patient's discharge chart.
== END 2024-05-28 17:24 | disposition home or self-care (01) ==
LOC: SDC 06:28
PROVIDERS: ATTEND Podiatrist Foot & Ankle Surgery
DX: T84.84XA Pain due to internal orthopedic prosthetic devices, implants and grafts, initial encounter (principal); M79.671 Pain in right foot; M19.071 Primary osteoarthritis, right ankle and foot; M20.41 Other hammer toe(s) (acquired), right foot; M67.40 Ganglion, unspecified site; M21.961 Unspecified acquired deformity of right lower leg; S93.524A Sprain of metatarsophalangeal joint of right lesser toe(s), initial encounter; R22.41 Localized swelling, mass and lump, right lower limb
CPT/HCPCS: 20680; 28039; 28285; 28308; 28313; 28750; 36415; 73630; 76000; 80053; 82947; 85027; 87086; 93005; C1713; C1769; J0690; J1170; J1885; J2250; J2405; J2704; J3010; A9270-GY